=== PATIENT | male | born 1955 | race Caucasian/White ===

== ENCOUNTER 2018-04-25 20:53 | Observation (INO) ==
--- NOTE | 2018-04-25 21:08 | Emergency Department Note ---
ED Disposition Clinical Impression: Community acquired pneumonia Qualifiers: Laterality: unspecified laterality Qualified Code(s): J18.9 - Pneumonia, unspecified organism Disposition: Still a Patient Condition on Discharge: Fair Referrals: Wendy Wu [Primary Care Provider] - - Critical Care Critical Care Time: No Attestation: On 04/25/18, the high probability of a clinically significant, sudden or life threatening deterioration of the following system(s) required my full and direct attention, intervention and personal management. The time I documented below is in addition to time spent performing reported procedures but includes the following listed in this critical care notation. Medical Decision Making - [place] Inquiry Pt receiving controlled substance: No Vital Signs: 04/25/18 20:59 04/25/18 21:30 04/25/18 22:03 Temperature 98.3 F Temperature Source Oral Pulse Rate 93 H 89 Pulse Rate [Right] 86 Respiratory Rate 24 Blood Pressure [Right Arm] 159/96 H Blood Pressure Mean [Right Arm] 117 02 Sat by Pulse Oximetry 99 Oxygen Delivery Method Room Air 04/25/18 23:00 Temperature 101.1 F H Temperature Source Oral Pulse Rate Pulse Rate [Right] 112 H Respiratory Rate 28 H Blood Pressure [Right Arm] 150/90 H Blood Pressure Mean [Right Arm] 110 02 Sat by Pulse Oximetry 94 L Oxygen Delivery Method Room Air - Lab Data Lab Results 04/25/18 21:00: WBC 11.2 H, RBC 4.63, Hgb 13.6 L, Hct 41.2 L, MCV 88.9, MCH 29.5, MCHC 33.1, RDW 14.3, Plt Count 165, MPV 6.9 L, Neut % (Auto) 88.9 H, Lymph % (Auto) 6.9 L, [place] % (Auto) 3.6, Eos % (Auto) 0.3, Baso % (Auto) 0.3, Neut # (Auto) 10.0 H, Lymph # (Auto) 0.8, [place] # (Auto) 0.4, Eos # (Auto) 0.0, Baso # (Auto) 0.0, Total Counted 100, Neutrophils % (Manual) 83 H, Band Neutrophils % 11.0 H, Lymphocytes % (Manual) 5 L, Monocytes % (Manual) 1 L, Platelet Estimate Normal, RBC Morphology Normal 04/25/18 21:00: Sodium 140, Potassium 4.3, Chloride 104, Carbon Dioxide 24, Anion Gap 16.3 H, BUN 21 H, Creatinine 1.32 H, Estimated Creat Clear 61, Estimated GFR 55 L, Est GFR ( Amer) 67, Glucose 128 H, Calcium 8.9, Troponin I < 0.02 04/25/18 21:00: Lactate 2.4 H 04/25/18 21:00: Influenza Type A Ag Negative, Influenza Type B Ag Negative 04/25/18 22:55: Urine Color Yellow, Urine Appearance Clear, Urine pH 7.0, Ur Specific [place] 1.020, Urine Protein Negative, Urine Glucose (UA) Negative, Urine Ketones Negative, Urine Blood Negative, Urine Nitrate Negative, Urine Bilirubin Negative, Urine Urobilinogen 0.2, Ur Leukocyte Esterase Negative, Urine WBC 3-5 Result diagrams: 04/25/18 21:00 04/25/18 21:00 Orders (Tests/Meds): ED MEDICATIONS Generic Name Dose Route Start Last Admin Trade Name Freq PRN Reason Stop Dose Admin Azithromycin 500 mg/ Sodium 250 mls @ 250 mls/hr 04/25/18 23:15 Chloride IV 05/09/18 23:14 Q24H MIKE Protocol Ceftriaxone Sodium 1 gm/ 50 mls @ 100 mls/hr 04/25/18 23:15 Sodium Chloride IV 05/09/18 23:14 Q24H MIKE Protocol Discontinued Medications Generic Name Dose Route Start Last Admin Trade Name Freq PRN Reason Stop Dose Admin Acetaminophen 650 mg 04/25/18 23:07 Acetaminophen 325mg Tab PO 04/25/18 23:08 ONCE ONE Albuterol/Ipratropium 3 ml 04/25/18 21:17 04/25/18 21:30 Duoneb 3ml Neb IH 04/25/18 21:18 3 ml ONCE ONE Administration Methylprednisolone Sodium Succinate 125 mg 04/25/18 23:08 Solu-Medrol 125mg/2ml Vial IV 04/25/18 23:09 ONCE ONE ORDERS Category Date Time Status Chest XR 2 view (NOT portable) [XR chest 2V] Stat Exams 04/25/18 21:11 Taken UA [Urinalysis and Microscopic] Stat Lab 04/25/18 22:55 Ordered Blood Culture Stat Micro 04/25/18 21:00 Received ECG Request by /Karel Stat Y 04/25/18 21:10 Ordered - Radiology Data #1 Image(s): Chest Image Reviewed: Yes I reviewed the patient's radiology image Bilateral upper lobe airspace disease, no old x-rays available for comparison - ECG Data Tracing #1 EKG interpreted by Jaden Malloy MD: Rhythm: sinus Rate: 87 [place]: normal Ectopy: none Conduction: normal ST Segment Changes: none T Wave Changes: none Q Waves: none No evidence of acute ischemia or injury Prior electrocardiagrams reviewed. No change from prior tracings. - Physician Consults Physician Consulted: Jayson Time: 23:20 Reason -: Admission Comment/Response: Agrees to admit the patient to the hospital. We discussed the patient's clinical information, including history, exam, laboratory and rad iology results and ED course. Per hospital procedure, I will write temporary bridge inpatient orders on the patient. Specific orders requested by the admitting physician: Rocephin, Zithromax, nebulizer treatments, Solu-Medrol General Adult HPI - General Stated complaint: SOB Patient has Black Lung Disease Time Seen by Provider: 04/25/18 22:51 - History of Present Illness HPI narrative: Sick for 2 days. Shortness of breath and cough. Very little sputum. [place] hot today but does not take his temperature. Denies rhinorrhea, sore throat, vomiting, and diarrhea. Has a black lung. Sees a animal handler in [place]. Primary care doctor is in [place]. He is on nebulizer treatments at home. He is not on steroids chronically and is not on oxygen at home. states also has chronic back pain, on Percocet. - Related Data Home Medications Medication Instructions Recorded Confirmed Diclofenac Sodium [Diclofenac 75mg 75 mg PO BID 04/25/18 04/25/18 Tab] Dutasteride [Avodart] 0.5 mg PO DAILY 04/25/18 04/25/18 Fluticasone/Vilanterol [Breo 1 each IH TID 04/25/18 04/25/18 Ellipta 100-25 Mcg INH] Oxycodone HCl/Acetaminophen 1 each PO NEEDED PRN 04/25/18 04/25/18 [Percocet 10-325 mg Tablet] Roflumilast [Daliresp] 1,000 mcg PO DAILY 10/28/18 10/28/18 Ropinirole HCl 1 mg PO DAILY 04/25/18 04/25/18 Allergies Allergy/AdvReac Type Severity Reaction Status Date / Time No Known Allergies Allergy Verified 04/25/18 21:10 [facility] History I have reviewed the patient's past medical history: Yes ROS Obtained: Yes All systems reviewed & no additional complaints - Constitutional Constitutional: Reports fever(s) (Subjective) - Cardiovascular Cardiovascular: Denies chest pain - Respiratory Respiratory: Yes cough, Yes dyspnea - Gastrointestinal Gastrointestingal: Denies: abdominal pain, diarrhea, vomiting Physical Exam - General General appearance: alert, other (Tachypneic) - Head Head exam: atraumatic, normocephalic - Eye Eye exam: Present: normal appearance, PERRL, EOMI - ENT ENT exam: Present: normal exam, normal oropharynx, TM's normal bilaterally - Neck Neck exam: Present: normal inspection, full ROM, trachea midline - Chest Chest inspection: Present: symmetric chest wall rise - Respiratory Respiratory exam: Present: normal lung sounds bilaterally - Cardiovascular Cardiovascular exam: Present: regular rate, normal rhythm - Abdominal Exam Abdominal exam: Present: soft. Absent: distention, tenderness - Neurological Exam Neurological exam: Present: alert - Psychiatric Psychiatric exam: Present: normal affect, normal mood - Skin Skin exam: Present: warm, dry
[2018-04-25 21:49] LABS: Basophils % 0.3 % (0.1-2.0); Eosinophils % 0.3 % (0.1-12.0); Hematocrit 41.2 % (42.0-52.0); Hemoglobin 13.6 g/dL (14.1-18.0); Lymphocytes # 0.8 K/mm3 (0.7-4.5); Lymphocytes % 6.9 K/mm3 (10-50); Mean Corpuscular HGB Conc 33.1 g/dL (31.8-35.4); Mean Corpuscular Hemoglobin 29.5 pg (27.0-31.2); Mean Corpuscular Volume 88.9 fl (80-94); Mean Platelet Volume 6.9 fl (7.4-10.4); Monocytes # 0.4 K/mm3 (0.1-1.0); Monocytes % 3.6 % (1.7-9.3); Neutrophils % 88.9 % (37.0-80.0); Platelet Count 165 K/mm3 (142-424); Red Blood Count 4.63 M/mm3 (4.60-6.20); Red Cell Distribution Width 14.3 % (11.5-17.5); White Blood Count 11.2 K/mm3 (4.8-10.8)
[2018-04-25 22:01] LABS: Anion Gap 16.3 mEq/L (5-15); Blood Urea Nitrogen 21 mg/dL (7-18); Calcium 8.9 mg/dL (8.5-10.1); Carbon Dioxide 24 mmol/L (21.0-32.0); Chloride 104 mmol/L (98-107); Glucose 128 mg/dL (74-106); Potassium 4.3 mmoL/L (3.5-5.1); Sodium 140 mmol/L (136-145)
[2018-04-25 22:19] LABS: Lymphocytes % 5 % (10-50); Monocytes % 1 % (2-9); Neutrophils % 83 % (42-76); RBC Morphology Normal; Total Cells Counted 100
[2018-04-25 23:01] LABS: Microscopic, Urine URINE MICROSCOPIC (MICROSCOPIC)
[2018-04-25 23:09] LABS: Appearance,Urine CLEAR (Clear); Bilirubin,Urine Negative (Negative); Blood, Urine Negative (Negative); Color,Urine YELLOW (Yellow); Glucose,Urine (UA) Negative (Negative); Ketones,Urine Negative (Negative); Leukocyte Esterase,Urine Negative (Negative); Protein,Urine Negative (Negative); Urobilinogen,Urine 0.2 EU/dl (0.2)
--- NOTE | 2018-04-26 07:26 | Pharmacy Consult Notes ---
[facility] Pharmacy VTE Monitoring - Patient Demographics Admission date: 04/25/18 Report Date: 04/26/18 Time: 07:26 Allergies/Adverse Reactions: Patient Allergies No Known Allergies Allergy (Verified 04/25/18 21:10) Height: 1.7 m Weight: 73.198 kg Patient Problems: Current Active Problems Community acquired pneumonia (Acute) - VTE Risk Labs: VTE Related Lab Results Hgb 13.6 g/dL (14.1-18.0) L 04/25/18 21:00 Hct 41.2 % (42.0-52.0) L 04/25/18 21:00 Plt Count 165 K/mm3 (142-424) 04/25/18 21:00 BUN 21 mg/dL (7-18) H 04/25/18 21:00 Creatinine 1.32 mg/dL (0.70-1.30) H 04/25/18 21:00 Estimated Creat Clear 61 mL/min (0-300) 04/25/18 21:00 Was VTE Risk Assessment Performed: Yes VTE Score: 5 VTE Risk Level: Low Risk - Prophylaxis VTE Prophylaxis Ordered?: Yes Types of VTE Prophylaxis: TEDS Knee High Location of Applied Device: Bilateral Lower Extremeties - VTE Diagnosis Confirmed Treatment or plan recommended: Continue Current Treatment
--- NOTE | 2018-04-26 08:37 | History & Physical Report ---
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 Wu, family practitioner in [facility], who was brought to the emergency department on the evening of admission by his because of "breathing distress." He and she report increasing work of breathing, coughing, sputum production of yellow/shafer purulent appearing sputum. In the emergency department chest x-ray revealed opacities in both upper lung mcclelland-and although we do not have a baseline chest x-ray it appeared to be an acute issue coupled with his symptoms and temperature elevation in the emergency department. Because of his underlying lung disease and increased work of breathing distress he was admitted to hospital for IV antibiotics and enhanced pulmonary toilet. [facility] History Medical History: Denies:: Cancer, Diabetes Mellitus Type 1, Diabetes Mellitus Type 2, Internal Pacemaker, MRSA Other Medical History: Reports: Arthritis (On Chronic narcotics) Comment: Black Lung. Follows with pulmonary in [place] Laterality Cases: Right: Arthroscopy Shoulder, Total Hip Replacement Other Surgeries: No: Pacemaker Amputation: No Fractures: Yes (R Hip) - *Social History Educational Level: Completed College Smoking Status: Never smoker Alcohol Intake: never Occupational Status: retired Housing: house - Psychiatric History Expresses thoughts of harming self/others: None Suicide Plan Description: No Plan *Family Hx:: Cancer, Diabetes, Hypertension Review of Systems - Review of Systems Review of systems:: pertinent systems reviewed and negative unless documented below - Constitutional Reports fever(s), Reports night sweats, Denies anorexia, Denies body ache(s) - Eyes Denies blind spots, Denies blurry vision, Denies change in vision - ENT Denies abnormal hearing, Denies bleeding gums - *Cardiovascular Reports shortness of breath, Reports shortness of breath with activity, Denies chest pain, Denies chest pain at rest, Denies excessive sweating, Denies irregular heart rhythm - *Respiratory Reports change in phlegm color, Reports chest congestion, Reports cough, Reports shortness of breath, Reports shortness of breath with activity, Reports excessive phlegm production, Denies coughing up blood, Denies pain on inspiration, Denies pain with cough - *Gastrointestinal Denies abdominal pain, Denies belching, Denies bloating, Denies coffee ground vomit, Denies constipation, Denies difficulty swallowing - *Genitourinary Denies difficulty urinating Meds Home Medications Medication Instructions Recorded Confirmed Type Diclofenac Sodium [Diclofenac 75mg 75 mg PO HS 04/25/18 04/26/18 History Tab] Dutasteride [Avodart] 0.5 mg PO HS 04/25/18 04/26/18 History Fluticasone/Vilanterol [Breo 1 each IH DAILY 04/25/18 04/26/18 History Ellipta 100-25 Mcg INH] Oxycodone HCl/Acetaminophen 1 each PO TID PRN 04/25/18 04/26/18 History [Percocet 10-325 mg Tablet] Roflumilast [Daliresp] 1,000 mcg PO DAILY 04/25/18 04/25/18 History Ropinirole HCl 1 mg PO DAILY 04/25/18 04/25/18 History Allergies Allergy/AdvReac Type Severity Reaction Status Date / Time No Known Allergies Allergy Verified 04/25/18 21:10 Exam Vital signs and Labs for Last 24 Hours: Temp Pulse Resp BP Pulse Ox 97.6 F 77 20 106/61 L 97 04/26/18 07:52 04/26/18 07:52 04/26/18 07:52 04/26/18 07:52 04/26/18 07:52 Laboratory Results - last 24 hr 04/25/18 21:00: WBC 11.2 H, RBC 4.63, Hgb 13.6 L, Hct 41.2 L, MCV 88.9, MCH 2 9.5, MCHC 33.1, RDW 14.3, Plt Count 165, MPV 6.9 L, Neut % (Auto) 88.9 H, Lymph % (Auto) 6.9 L, [place] % (Auto) 3.6, Eos % (Auto) 0.3, Baso % (Auto) 0.3, Neut # (Auto) 10.0 H, Lymph # (Auto) 0.8, [place] # (Auto) 0.4, Eos # (Auto) 0.0, Baso # (Auto) 0.0, Total Counted 100, Neutrophils % (Manual) 83 H, Band Neutrophils % 11.0 H, Lymphocytes % (Manual) 5 L, Monocytes % (Manual) 1 L, Platelet Estimate Normal, RBC Morphology Normal 04/25/18 21:00: Sodium 140, Potassium 4.3, Chloride 104, Carbon Dioxide 24, Anion Gap 16.3 H, BUN 21 H, Creatinine 1.32 H, Estimated Creat Clear 61, Estimated GFR 55 L, Est GFR ( Amer) 67, Glucose 128 H, Calcium 8.9, Troponin I < 0.02 04/25/18 21:00: Lactate 2.4 H 04/25/18 21:00: Influenza Type A Ag Negative, Influenza Type B Ag Negative 04/25/18 22:55: Urine Color Yellow, Urine Appearance Clear, Urine pH 7.0, Ur Specific [place] 1.020, Urine Protein Negative, Urine Glucose (UA) Negative, Urine Ketones Negative, Urine Blood Negative, Urine Nitrate Negative, Urine Bilirubin Negative, Urine Urobilinogen 0.2, Ur Leukocyte Esterase Negative, Urine WBC 3-5 04/26/18 00:45: Lactate 1.0 I & O for Last 24 hours: Intake & Output 04/23/18 04/24/18 04/25/18 04/26/18 11:59 11:59 11:59 11:59 Intake Total 710 / 710 Balance 710 / 710 Weight 161 lb 6 oz Microbiology Reports for the Last 24 Hours: Microbiology 04/25/18 23:50 Sputum - Expectorated Sputum Gram Stain - Final Narrative: Patient is awake, alert. Oriented x3. Appears somewhat older than his stated age, oropharynx is moist and clear, no sinus tenderness. Lungs have rhonchi in all lung mcclelland, otherwise good air movement, some crackles in the left upper lung field. Heart rate regular without murmurs. Abdomen soft, nontender. Good distal perfusion, no edema. Able to move all extremities, good power, normal sensation. Assessment and Plan (1) [place] workers pneumoconiosis Current visit: Yes Status: Chronic Category: Medical Code(s): J60 - Coalworker's pneumoconiosis Agree with admission to hospital for enhanced pulmonary toilet, continue chronic respiratory medication. (2) Chronic, continuous use of opioids Current visit: Yes Status: Chronic Category: Medical Code(s): F11.90 - Opioid use, unspecified, uncomplicated Watch mental status in hospital carefully -- continue current outpatient regimen (3) Community acquired pneumonia Current visit: Yes Status: Acute Qualifiers: Laterality: unspecified laterality Qualified Code(s): J18.9 - Pneumonia, unspecified organism Category: Medical Code(s): J18.9 - Pneumonia, unspecified organism Agree with admission given underlying lung disease. Significant comorbid conditions. Await culture results.
[2018-04-27 06:08] LABS: Eosinophils % 0.1 % (0.1-12.0); Hematocrit 38.6 % (42.0-52.0); Hemoglobin 12.4 g/dL (14.1-18.0); Lymphocytes # 0.7 K/mm3 (0.7-4.5); Mean Corpuscular HGB Conc 32.1 g/dL (31.8-35.4); Mean Corpuscular Hemoglobin 28.9 pg (27.0-31.2); Mean Corpuscular Volume 90.1 fl (80-94); Mean Platelet Volume 7.3 fl (7.4-10.4); Monocytes # 0.5 K/mm3 (0.1-1.0); Monocytes % 2.7 % (1.7-9.3); Neutrophils # 17.4 K/mm3 (1.8-7.8); Neutrophils % 93.3 % (37.0-80.0); Platelet Count 165 K/mm3 (142-424); Red Blood Count 4.29 M/mm3 (4.60-6.20); Red Cell Distribution Width 14.4 % (11.5-17.5); White Blood Count 18.7 K/mm3 (4.8-10.8)
[2018-04-27 06:17] LABS: Anion Gap 15.5 mEq/L (5-15); Calcium 8.5 mg/dL (8.5-10.1); Potassium 4.5 mmoL/L (3.5-5.1)
[2018-04-27 07:47] LABS: Lymphocytes % 4 % (10-50); Monocytes % 3 % (2-9); Neutrophils % 88 % (42-76); RBC Morphology Normal; Total Cells Counted 100
--- NOTE | 2018-04-27 09:04 | Discharge Summary ---
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 Wu, family practitioner in [facility], who was brought to the emergency department on the evening of admission by his because of "breathing distress." He and she report increasing work of breathing, coughing, sputum production of yellow/shafer purulent appearing sputum. In the emergency department chest x-ray revealed opacities in both upper lung mcclelland-and although we do not have a baseline chest x-ray it appeared to be an acute issue coupled with his symptoms and temperature elevation in the emergency department. Because of his underlying lung disease and increased work of breathing distress he was admitted to hospital for IV antibiotics and enhanced pulmonary toilet. Hospital Course Hospital Course: Patient admitted to observation for increased pulmonary toilet and initiation of IV antibiotics. Blood cultures obtained and respiratory culture obtained. Have not formally resulted yet however blood cultures remain negative. Respiratory culture does have some gram-positive cocci, pending speciation sensitivities. Patient improved significantly with initiation of antibiotics and pulmonary toilet. [place] 80% his baseline this morning on rounds. No oxygen requirement, interval improvement in lung exam. Feels well enough to go home. Clinically stable, no fevers, improvement in cough. Plan to transition oral antibiotics and discharge home with follow-up of cultures pending any adjustments in antibiotics. Objective Vital signs: Temp Pulse Resp BP Pulse Ox 97.6 F 83 18 111/60 96 04/27/18 08:00 04/27/18 08:00 04/27/18 08:00 04/27/18 08:00 04/27/18 08:00 - *Routine HEENT Exam Head: Present: normocephalic, atraumatic Eye: Present: EOMI, PERRL ENT: Present: mucous membranes moist - *Routine Neck Exam Present: supple, full ROM. Absent: JVD - *Routine Respiratory Exam Present: prolonged expiratory phase, crackles. Absent: accessory muscle use, wheezes Comments: Good air movement bilaterally - *Routine Cardiovascular Exam Present: RRR, Normal S1, Normal S2. Absent: murmur - *Routine Abdominal Exam Present: soft, normoactive bowel sounds. Absent: tenderness - *Routine Rectal Exam Patient deferred: visual exam - *Routine Exam Patient deferred: penile exam - *Routine Extremities Exam Absent: cyanosis, clubbing, edema - *Routine Skin Exam Present: intact. Absent: cyanosis, erythema - *Routine Neurological Exam Present: alert, oriented X3, CN II-XII intact. Absent: altered mental status Results Labs on day of discharge: Labs from last 24 hours 04/27/18 04/27/18 05:35 05:35 WBC 18.7 H D RBC 4.29 L Hgb 12.4 L Hct 38.6 L MCV 90.1 MCH 28.9 MCHC 32.1 RDW 14.4 Plt Count 165 MPV 7.3 L Neut % (Auto) 93.3 H Lymph % (Auto) 4.0 L [place] % (Auto) 2.7 Eos % (Auto) 0.1 Baso % (Auto) 0.0 L Neut # (Auto) 17.4 H Lymph # (Auto) 0.7 [place] # (Auto) 0.5 Eos # (Auto) 0.0 Baso # (Auto) 0.0 Total Counted 100 Neutrophils % (Manual) 88 H Band Neutrophils % 5.0 Lymphocytes % (Manual) 4 L Monocytes % (Manual) 3 Platelet Estimate Normal RBC Morphology Normal Sodium 141 Potassium 4.5 Chloride 107 Carbon Dioxide 23 Anion Gap 15.5 H BUN 22 H Creatinine 1.14 Estimated Creat Clear 71 Estimated GFR 66 Est GFR ( Amer) 79 Glucose 151 H Calcium 8.5 Preliminary micro results at discharge 04/25/18 23:50 Sputum Culture - Preliminary Sputum - Expectorated Sputum DS: Diagnosis - Discharge Diagnosis (1) [place] workers pneumoconiosis Status: Chronic Problem details: continue breathing treatments at home. (2) Chronic, continuous use of opioids Status: Chronic Problem details: continue home regimen (3) Community acquired pneumonia Status: Acute Problem details: Transition to PO Cefdinir and Azith to complete 7 days of Abx for CAP treatment. Culture still pending. Due to clinical improvement on current regmien, stable of DC with follow-up of cultures as out patient Discharge Plan - Patient Discharge Instructions ACTIVITY: Continue current activity DIET: continue same diet - Follow up Plan Follow up with: Kenny Tyler MD [Staff Physician] - Disposition: Home, Self-[facility] Medications: Home Medications Medication Instructions Recorded Confirmed Type Diclofenac Sodium [Diclofenac 75mg 75 mg PO BID 04/25/18 04/26/18 History Tab] Dutasteride [Avodart] 0.5 mg PO HS 04/25/18 04/26/18 History Fluticasone/Vilanterol [Breo 1 puff IH DAILY 04/25/18 04/26/18 History Ellipta 100-25 Mcg INH] Roflumilast [Daliresp] 500 mcg PO DAILY 04/25/18 04/26/18 History Ropinirole HCl 2 mg PO HS 04/25/18 04/26/18 History Albuterol Sulfate [Albuterol 3 ml IH Q6HP PRN 04/26/18 04/26/18 History 0.042% 1.25mg/3mL neb] Albuterol Sulfate [Albuterol HFA 2 puffs IH Q4HP PRN 04/26/18 04/26/18 History Inhaler] Omeprazole [Omeprazole 20mg 20 mg PO DAILY 04/26/18 04/26/18 History Capsule] Oxycodone HCl [Oxycodone (IR) 15mg 15 mg PO TIDP PRN 04/26/18 04/26/18 History Tab] Umeclidinium [place] [Incruse 1 puff IH DAILY 04/26/18 04/26/18 History Ellipta] Prescriptions/Medication Reconciliation: New Cefdinir [Omnicef 300mg Capsule] 300 mg PO BID 7 Days #14 cap Oxycodone HCl/Acetaminophen [Oxycodone W/Apap 325mg Tablet] 1 each PO TIDP PRN tablet PRN Reason: Moderate To Severe Pain Azithromycin [Zithromax 250mg tab] 250 mg PO DAILY 4 Days #4 tablet predniSONE [Prednisone 20mg Tab] 40 mg PO DAILY 4 Days #8 tab Continue Diclofenac Sodium [Diclofenac 75mg Tab] 75 mg PO BID Ropinirole HCl 2 mg PO HS Roflumilast [Daliresp] 500 mcg PO DAILY Fluticasone/Vilanterol [Breo Ellipta 100-25 Mcg INH] 1 puff IH DAILY Umeclidinium [place] [Incruse Ellipta] 1 puff IH DAILY Albuterol Sulfate [Albuterol 0.042% 1.25mg/3mL neb] 3 ml IH Q6HP PRN PRN Reason: Shortness Of Breath Oxycodone HCl [Oxycodone (IR) 15mg Tab] 15 mg PO TIDP PRN PRN Reason: PAIN Dutasteride [Avodart] 0.5 mg PO HS Albuterol Sulfate [Albuterol HFA Inhaler] 2 puffs IH Q4HP PRN PRN Reason: Shortness Of Breath Or Wheezing Omeprazole [Omeprazole 20mg Capsule] 20 mg PO DAILY
== END 2018-04-27 12:35 | disposition home or self-care (01) ==
LOC: EDBD → ER 20:53 → 2ND 20:53 → MERGE 04-26 00:20 → 2ND 04-26 00:21
PROVIDERS: ADMIT Internal Medicine Adolescent Medicine; ATTEND Internal Medicine Adolescent Medicine

== ENCOUNTER 2022-12-02 20:26 | Emergency (ER) | payer MEDICARE, OTHER, SELFPAY ==
[2022-12-02 20:34] VITALS: BP 133/59; PULSE 74; RESP 15; TEMP 36.6; O2SAT 95; BMI 25.0
--- NOTE | 2022-12-02 20:39 | PC.NURSE ---
Dr. Sebastian at
[2022-12-02 21:00] VITALS: BP 121/57; PULSE 69; O2SAT 96
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
[2022-12-02 21:27] VITALS: BP 115/79; PULSE 64; RESP 16; TEMP 36.6; O2SAT 96
== END 2022-12-02 21:28 | disposition home or self-care (01) ==
PROVIDERS: Emergency Provider Emergency Medicine; PCP Family Medicine
DX: T22.211A Burn of second degree of right forearm, initial encounter (principal); X03.8XXA Other exposure to controlled fire, not in building or structure, initial encounter; Z23 Encounter for immunization
CPT/HCPCS: 90714; 96372; 99283; 99284

== ENCOUNTER 2025-01-30 08:04 | Outpatient (CLI) | payer MEDICARE, OTHER, SELFPAY ==
--- OUTSIDE RECORDS SUMMARY | 2025-01-30 08:14 | XMS_ITS | Clinical Summary ---
Author Organization [facility] Address [address] [place] [address] Care Team Providers Care Sanitarian Name Role Phone Tyshawn uW MD Primary Care Provider [phone] Allergies Active Allergy Reactions Criticality Noted Date Comments No Known Drug Allergy 12/23/2012 Medications aspirin 81 MG tablet Take by mouth Daily. 12/23/2012 Active dutasteride (AVODART) 0.5 MG capsule Take by mouth Daily. 12/23/2012 Active omeprazole (priLOSEC) 40 MG capsule Take by mouth Daily. 06/14/2013 Active oxyCODONE-acetam inophen (PERCOCET) 10-325 MG per tablet Take by mouth. 03/30/2013 Active vitamin B-12 (CYANOCOBALAMIN) 100 MCG tablet Take by mouth Daily. 12/23/2012 Active Cholecalciferol (VITAMIN D PO) Take 50,000 mg by mouth. 12/23/2012 Active diclofenac (VOLTAREN) 75 MG EC tablet 08/13/2016 Active rOPINIRole (REQUIP) 1 MG tablet 09/21/2016 Active anastrozole (ARIMIDEX) 1 MG tablet Take by mouth Daily. Active Polyethylene Glycol 3350 granules 11/14/2016 Active Polyethylene Glycol 3350 granules 02/26/2017 Active Active Problems Problem Noted Date Diagnosed Date Primary osteoarthritis of left knee 06/02/2017 Immunizations Immunization Administration Dates Next Due Pneumococcal, Unspecified 02/04/2014 Family History Medical History Relation Name Comments Heart attack Father Heart disease Father Hypertension Father Hypertension Mother Diabetes Other 1 sibling Hypertension Other 1 sibling Heart attack Other 2 Grandparent Heart disease Other 2 Grandparent Stroke Other 2 Grandparent Relation Name Status Comments Father Mother Other 1 sibling Other 2 Grandparent Social History Tobacco Use Types Packs/Day Years Used Date Smoking Tobacco: Never Smokeless Tobacco: Former Chew, Snuff Quit: 2011 Alcohol Use Standard Drinks/Week Comments No 0 (1 standard drink = 0.6 oz pur e alcohol) Abuse Screen Answer Date Recorded Unsafe at Home or Work/School Not on file Feels Threatened by Someone? Not on file 02/2023 Does Anyone Keep You from Co ntacting Others or Doint Things Outside the Home? Not on file 04/06/2023 Physical Sign of Abuse Present Not on file 1 Housing Stability Answer Date Recorded Current Living Arrangements Not on file 02/2023 Potentially Unsafe Housing Conditions Not on marisol e 04/06/2023 Family and Community Support Answer Florencio e Recorded Help with Day-to-Day Activities Not on file 04/06/2023 Lonely or Isolated Not on file 04/06/2023 Employment Answer Date Recorded Do you want help finding or keeping work or a yeimi b? Not on file 04/06/2023 Disabilities Answer Date Recorded Concentrating, Remembering, or Making Decisions Difficulty Not on file 04/06/2023 Doing Errands Independently Difficulty Not on fi le 04/06/2023 Education Answer Date Recorded Help with school or training? Not on file Preferred Language Not on file 04/06/2023 Sex and Gender Information Value Date Recorded Sex Assigned at Not on file Legal Sex Male 1:13 PM EDT Gender Identity Not on file Sexual Orientation Not on file Last Filed Vital Signs Vital Sign Reading Time Taken Comments Blood Pressure 128/65 05/19/2017 9:40 AM EST Pulse 65 05/19/2017 9:40 AM EST Temperature 36.8 C (98.2 F) 12/23/2013 12:59 PM EDT Respiratory Rate 18 12/23/2013 12:59 PM EDT Oxygen Saturation 97% 12/23/2013 12:59 PM EDT Inhaled Oxygen Concentration - - Weight 72.6 kg (160 lb) 05/19/2017 9:40 AM EST Height 167.6 cm (5' 6 ) 05/19/2017 9:40 AM EST Body Mass Index 25.82 05/19/2017 9:40 AM EST Plan of Treatment Health Maintenance Due Date Last Done Comments Pneumococcal Vaccine 50+ (1 of 2 - PCV) 1976 0 02/04/2014 TDAP/TD VACCINES (1 - Tdap) 1976 COLOGUARD 2002 COLON CANCER SCREENING 5 YEAR SIGMOIDOSCOPY 2002 COLONOSCOPY 2002 [address] CANCER SCREENING 2002 CT COLONOGRAPHY 2002 FECAL OCCULT BLOOD TEST 2002 FIT Testing (1 year) 2002 ZOSTER VACCINE (1 of 2) 09/06/2007 ANNUAL PHYSICAL 11/04/2016 HEPATITIS C SCREENING 11/04/2016 AAA SCREEN ONCE 2022 COVID-19 Vaccine (2023- season) 2024 INFLUENZA VACCINE 03/29/2025 Insurance [employer] HMO - NON PAR on file Care Teams Sanitarian Relationship Specialty Start Date End Date Tyshawn Wu MD [address] [facility] [address] [place] [address] PCP - General Family Medicine 11/04/16
--- OUTSIDE RECORDS SUMMARY | 2025-01-30 08:14 | XMS_ITS | Encounter Summary ---
Author Organization [employer] ([place], [place], [place], [place]) Address [address] [place] [address] Care Team Providers Care Compensation And Benefits Advisor Name Role Phone Unavailable Primary Care Provider Unavailabl e Reason for Referral * Consultation (Routine) - Closed Specialty Diagnoses / Procedures Referred By Contaltagracia t Referred To Contact Behavioral Health / Psychiatry Diagnoses Memory loss Romeo Herrera MD [address] [place] [phone] Phone: tel: fax: Referral ID Status Reason Start Date Expiration Date V isits Requested Visits Authorized [id number] Closed Specialty Services Required 01/07/2023 07/06/2023 1 1 Encounter Details Date Type Department Care Team (Late st Contact Info) Description 01/07/2023 Outside Orders [facility] Scheduling [address] [place] [address] Romeo Herrera MD [address] [place], [place] [id number] Memory loss (Primary Dx) Social History Tobacco Use Types Packs/Day Years Used Date Smoking Tobacco: Never Assessed Food Insecurity Answer Date Recorded Food run out past 12 months Not on file 06/29 Food did not last past 12 months Not on file 07/10/2023 Employment Answer Date Recorded Help finding and keeping a job Not on file 0 07/10/2023 Family and Community Support Answer Florencio e Recorded Help with Day to Day Activities Not on file 07/10/2023 Feeling Lonely or Isolated Not on file 07/10 Educational Attainment Answer Date Wellington rded Speak language other than Gibraltarian at home Not on file 07/10/2023 Want help with school or training Not on file 07/10/2023 Substance Use Answer Date Recorded Used prescription meds for non-medical reasons N ot on file 07/10/2023 Used illegal drugs past 12 months Not on file 07/10/2023 Sex and Gender Information Value Date Recorded Sex Assigned at Not on file Legal Sex Male 4:29 PM CDT Gender Identity Not on file Sexual Orientation Not on file documented as of this encounter Plan of Treatment Scheduled Referrals Name Type Priority Associated Diagnoses Order Schedule Ambulatory referral to Behavioral Health Outpatient Referral Routine Memory loss Expected: 01/07/2023, Expires: 01/08/2024 documented as of this encounter Visit Diagnoses Diagnosis Memory loss- Primary documented in this encounter
--- OUTSIDE RECORDS SUMMARY | 2025-01-30 08:15 | XMS_ITS | Referral Summary ---
Author Organization [employer] ([place], [place], [place], [place]) Address [address] [place] [address] Care Team Providers Care Respiratory Care Instructor Name Role Phone Unavailable Primary Care Provider Unavailabl e Social History Tobacco Use Types Packs/Day Years [...] Date [place] rded Speak language other than Amharic at home Not on file 07/10/2023 Want [...] on file Sexual Orientation Not on file Plan of Treatment Not on file Insurance ENRIQUE Millan [id number] [facility] MEDICARE PPO MEDICARE PART A B
--- OUTSIDE RECORDS SUMMARY | 2025-01-30 08:15 | XMS_ITS | Clinical Summary ---
Author Organization [employer] ([place], [place], [place], [place]) Address [address] [place] [address] Care Team Providers Care Compressed Yeast Supervisor Name Role Phone Unavailable Primary Care Provider [...] Date Wellington rded Speak language other than Albanian at home Not on file 07/10/2023 Want [...] Orientation Not on file Plan of Treatment Health Maintenance Due Date Last Done Comments CT Colonography 1957 Colonoscopy 1957 Colorectal Cancer Screening 1957 FOBT/FIT 1957 Fit-DNA (Cologuard) 1957 Sigmoidoscopy 1957 Depression Screening (12+) 1969 Tobacco Cessation Counseling and Screening (12+) 09/05 Hepatitis C Screening 09/06/1975 Pneumococcal 50+ years (1 of 1 - PCV) 09/06/2007 Shingles Vaccine (Zoster) (1 of 2) 09/06/2007 Medicare Initial AWV [id number] 06/30/2023 COVID-19 VACCINE (2 - season) 02/28/202403/2021 Falls Risk Screening 06/29/2024 Influenza Vaccine (#1) 2025 04/15/2022 Respiratory Syncytial Virus (RSV) Adult or (1 - 1-dose 75+ series) 2032 DTAP/TDAP/TD VACCINES (2 - Td or Tdap) 12/02/2032 Insurance [facility] MEDICARE PPO MEDICARE PART A B
[2025-01-30 08:41] LABS: Hematocrit 46.1 % (42.0-52.0); Hemoglobin 14.9 g/dL (14.1-18.0); Mean Corpuscular HGB Conc 32.3 g/dL (31.8-35.4); Mean Corpuscular Hemoglobin 29.5 pg (27.0-31.2); Mean Corpuscular Volume 91.3 fl (80-94); Platelet Count 147 K/mm3 (142-424); Red Blood Count 5.05 M/mm3 (4.60-6.20); White Blood Count 6.6 K/mm3 (4.8-10.8)
[2025-01-30 08:56] LABS: Albumin Level 3.6 g/dl (3.5-5.0); Chloride 106 mmol/L (98-107)
[2025-01-30 08:57] LABS: Potassium 4.3 mmoL/L (3.5-5.1); Sodium 137 mmol/L (136-145)
[2025-01-30 08:59] LABS: Alanine Aminotransferase 14 U/L (12-78); Anion Gap 9.3 mEq/L (5-15); Aspartate Amino Transferase 30 U/L (17-59); Blood Urea Nitrogen 27 mg/dl (9-20); Carbon Dioxide 26 mmol/L (22.0-30.0); Creatinine,Serum 1.10 mg/dl (0.66-1.25); Estimated Glomerular Filt Rate 67 ml/min (>60); GFR (African American) 81 ML/MIN (>60)
[2025-01-30 09:00] LABS: Albumin/Globulin Ratio 1.2 (1.1-1.8); Alkaline Phosphatase 60 U/L (38-126); Bilirubin,Total 0.6 mg/dl (0.2-1.3); Calcium 9.4 mg/dl (8.4-10.2); Globulin 3.0 g/dL (1.3-3.2); Glucose 97 mg/dl (74-100); Total Protein,Serum 6.6 g/dl (6.3-8.2)
[2025-01-30 09:33] LABS: Glucose,Fasting 97 mg/dl (74-100)
[2025-01-30 09:49] LABS: RBC Morphology Normal; Total Cells Counted 100
[2025-01-30 11:29] LABS: Thyroid Stimulating Hormone 2.01 uIU/mL (0.465-4.68)
[2025-01-30 11:44] LABS: Glucose 2 Hour 129 mg/dL (74-100)
[2025-01-30 11:48] LABS: Vitamin B12 393 pg/mL (239-931)
[2025-01-30 12:05] LABS: Glucose 1 Hour 141 mg/dL (74-100); Glucose 3 Hour 87 mg/dL (74-100)
[2025-01-30 12:48] LABS: Hemoglobin A1C 4.7 % (4.0-6.0)
== END 2025-01-30 23:59 | disposition home or self-care (01) ==
LOC: LAB 08:05
PROVIDERS: PCP Family Medicine; Visit Provider Specialist
DX: G93.40 Encephalopathy, unspecified (principal); G31.84 Mild cognitive impairment of uncertain or unknown etiology; G47.33 Obstructive sleep apnea (adult) (pediatric); R53.83 Other fatigue
CPT/HCPCS: 36415; 80053; 82607; 82951; 83036; 84443; 85007; 85014; 85018; 85048; 85049

== ENCOUNTER 2025-04-28 18:32 | Emergency (ER) | payer MEDICARE, OTHER, SELFPAY ==
[2025-04-28 18:35] VITALS: BP 122/62; PULSE 71; RESP 18; TEMP 37.4; O2SAT 96; BMI 25.0
--- NOTE | 2025-04-28 18:47 | XR_ITS ---
PROCEDURE INFORMATION: Exam: XR Right Hip Exam date and time: 04/28/2025 7:14 PM Age: 69 years old Clinical indication: Hip pain; Right hip; Additional info: Pain, fall TECHNIQUE: Imaging protocol: Radiologic exam of the right hip. Views: 2 or 3 views hip with pelvis when performed. COMPARISON: No relevant prior studies available. FINDINGS: Bones/joints: Bipolar right hip arthroplasty. No prosthetic dislocation. There is an age indeterminate nondisplaced intertrochanteric fracture of the right proximal femur with absent cortical bridging laterally. Can not exclude acute fracture elements, consider CT characterization as clinically indicated. Linear longitudinal lucency projecting at the tip of the femoral stem is felt to represent a vascular groove based on the lateral view. Moderate lower lumbar osteoarthritic changes. Soft tissues: No gross soft tissue abnormalities. Vasculature: Moderate calcific atherosclerosis. Other findings: Vasectomy clips noted. IMPRESSION: Age indeterminate nondisplaced intertrochanteric fracture of the right proximal femur. In the absence of prior comparison imaging, CT could be helpful to exclude elements of acute fracture. There is no hardware displacement or breakage.
--- NOTE | 2025-04-28 18:49 | ED_ITS ---
<Statement entered by Saundra Byrd DO - 04/28/25 21:55> I was consulted by the DECLAN, and we discussed the complexity of problems being addressed. I approve the treatment and management plan for this patient's care in the emergency department, thus performing a substantial portion of the medical decision making. Saundra Byrd DO Discharge Plan Disposition Chief Complaint: PAIN Prescriptions Prescriptions: No Action oxycodone-acetaminophen 10-325 mg tablet 1 tab PO TID PRN albuterol sulfate 2.5 mg /3 mL (0.083 %) solution for nebulization 2.5 mg continuous nebulization Breztri Aerosphere 160-9-4.8 mcg/actuation HFA aerosol inhaler inhalation Patient Comments: inhale 2 puffs BY MOUTH 2 TIMES A DAY ropinirole 1 mg tablet 1 mg PO HS Rx Instructions: administer 1-3 hours before bedtime tamsulosin 0.4 mg capsule 0.4 mg PO HS aspirin 81 mg tablet 81 mg PO DAILY testosterone cypionate 200 MG/ML oil 200 mg IM QOW albuterol sulfate 8.5 GM HFA aerosol inhaler 2 puffs inhalation Q4HP PRN (Reason: SOA) Referrals Follow up/Referrals: Tyshawn Wu MD [Primary Care Provider, Medical] - See instructions Print Language Print Language: Kyrgyz Discharge ED Provider: Saundra Byrd General Adult HPI General Chief complaint: PAIN Stated complaint: AO 04/28 1630, fell, inj right hip Time Seen by Provider: 04/28/25 18:49 Mode of Arrival: Ambulatory Source of Information: Patient and Spouse Description of Symptoms (Recalled from ER Triage Doc. by RN): abhilash presents after a fall at home. patient was tring to put his shoes on approximately an hour ago and he slipped, fell on his right hip and believes it may be broken. History of Present Illness HPI narrative: 69-year-old male presents for complaint of a fall onto his right hip. He was trying to put his shoes on about an hour ago and slipped and fell onto his right hip he thinks he has a broken hip. He was able to stand up on it and scoot his feet. His brought him in along with his grandson. Patient has history of lung surgery, bilateral hip replacements and a rotator cuff surgery. Patient also has history of memory loss, low back pain, kidney stones, reflux, COPD and sleep apnea. Patient has hypertension, restless legs, gout and hyperlipidemia. Patient did tell me that he is on O2 all the time. He wears 3 L nasal cannula at home. Related Data Home Medications ?Medication ?Instructions ?Recorded ?Confirmed albuterol sulfate 90 mcg/actuation 2 puffs inhalation Q4HP PRN SOA 08/17/19 01/25/25 aerosol inhaler testosterone cypionate 200 mg/mL 200 mg IM QOW testost erone 08/17/19 01/25/25 intramuscular oil supplement albuterol sulfate 2.5 mg/3 mL 2.5 mg continuous nebuli zation 09/22/24 01/25/25 (0.083 %) solution for nebulization oxycodone-acetaminophen 10 mg-325 1 tab PO TID PRN 01/25/25 mg tablet aspirin 81 mg tablet 81 mg PO DAILY 11/28/2412/29 ropinirole 1 mg tablet 1 mg PO HS 11/28/24 01/25/25 tamsulosin 0.4 mg capsule 0.4 mg PO HS 11/28/24 budesonide 160 mcg-glycopyr 9 inhalation 01/25/2512/29 mcg-formot 4.8 mcg/actuation HFA inhaler (Breztri Aerosphere) Allergies Allergy/AdvReac Type Severity Reaction Status Date / Time No Known Allergies Allergy Verified 01/25/25 11:27 [facility] Disclaimer: The information contained in this section may have been updated after the patient was seen, as this information can be updated by other users. Medical History History of depression History of memory loss History of low back pain History of kidney stones History of gastroesophageal reflux (GERD) History of COPD FRANKLIN (obstructive sleep apnea) Previously on CPAP with AHI 10 and currently on auto BiPAP but without significant improvement. Compliance report pending History of essential hypertension History of restless legs syndrome He has mainly PLMS and doing fairly well on Requip. History of gout History of hyperlipidemia Acute exacerbation of chronic obstructive airways disease Black lung disease Active follow-up with pulmonology in [place]. O2 at night and reluctant to consider O2 during daytime. Surgical History History of lung surgery History of bilateral hip replacements History of rotator cuff surgery Family History Other Cancer Coronary artery disease Depression Diabetes Heart attack Hypertension FRANKLIN (obstructive sleep apnea) Seizure Stroke Social History Smoking Status: Never smoker alcohol intake: never substance use type: denies use current occupational status: retired and disabled Travel in the last 8 weeks?: None household members: spouse housing: house marital status: number of children: 3 caffeine: Yes Have you lived/traveled outside US in past 30 days?: No Contact w/someone who lives/traveled outside US past 30 days?: No Exposure to someone with infectious disease in past 14 days?: No Do you have a fever (greater than 100.4 F or 38 C)?: No Have you tested positive for COVID-19?: No Exposed to someone with COVID-19 in past 14 days?: No Do you have a sore throat?: No Do you have a cough?: No Do you have any weakness?: No Do you have any diarrhea?: No Are you experiencing any unusual bleeding?: No Do you have any muscle aches/pain?: No Do you have any abdominal pain?: No Are you experiencing loss of taste or smell?: No Other Medical History Have you received the Flu Vaccine for this season: No Have you received the Pneumonia Vaccine: Yes ROS Obtained: Yes Systems reviewed as appropriate & no additional complaints except as documented Constitutional Constitutional: Reports as per HPI Physical Exam General General appearance: alert and in no apparent distress Head Head exam: normocephalic Eye Eye exam: Present PERRL and EOMI ENT ENT exam: Present normal oropharynx and mucous membranes moist Neck Neck exam: Present full ROM and trachea midline Respiratory Respiratory exam: Present normal lung sounds bilaterally Cardiovascular Cardiovascular exam: Present regular rate, normal rhythm, normal heart sounds, +S1 and +S2 Extremities Exam Extremities exam: Present tenderness and normal capillary refill Neurological Exam Neurological exam: Present alert and oriented X3 Skin Skin exam: Present warm and dry Medical Decision Making Medical Records Screening: Per USPSTF and CDC recommendations, given the prevalence of disease in our region, it is our hospital?s policy to screen for HIV and viral Hepatitis for all patients aged 18 and over and those with ongoing risk factors. Tre[place] Inquiry Pt receiving controlled substance: No Tre[place] was queried for this patient: No Vital Signs: 04/28/25 18:35 04/28/25 19:09 04/28/25 20:00 Temperature 99.3 F 98.2 F Temperature Source Temporal Artery Scan Oral Pulse Rate 71 69 Pulse Rate [Right Radial] 71 Respiratory Rate 18 16 Blood Pressure 119/66 120/72 Blood Pressure [Right Arm] 122/62 Blood Pressure Mean [Right Arm] 82 Blood Pressure Source [Right Arm] Automatic Cuff Blood Pressure Position [Right Arm] Sitting 02 Sat by Pulse Oximetry 96 94 L 100 Oxygen Delivery Method Room Air Room Air Lab Data Lab Results 04/28/25 18:55: WBC 7.3, RBC 4.77, Hgb 14.3, Hct 43.3, MCV 90.8, MCH 30.0, MCHC 33.0, RDW 16.0, Plt Count 170, MPV 9.0, Neut % (Auto) 78.4, Lymph % (Auto) 12.3, Knox % (Auto) 7.3, Eos % (Auto) 0.7, Baso % (Auto) 0.5, Neut # (Auto) 5.7, Lymph # (Auto) 0.9, Knox # (Auto) 0.5, Eos # (Auto) 0.1, Baso # (Auto) 0.0, Sodium 133 L, Potassium 4.2, Chloride 100, Carbon Dioxide 28, Anion Gap 9.2, BUN 25 H, C reatinine 1.30 H, Estimated Creat Clear 55, Estimated GFR 55 L, Est GFR ( Amer) 67, Glucose 102 H, Calcium 8.7, Magnesium 2.2, Total Bilirubin 0.9, AST 30, ALT 19, Alkaline Phosphatase 61, Total Protein 6.8, Albumin 4.8, Globulin 2.0, Albumin/Globulin Ratio 2.4 H, Lipase 284 04/28/25 18:55 04/28/25 18:55 Orders (Tests/Meds): ED MEDICATIONS Discontinued Medications Generic Name Dose Route Start Last Admin Trade Name Freq PRN Reason Stop Dose Admin Morphine Sulfate 4 mg 04/28/25 18:48 04/28/25 18:58 Morphine 4mg/Ml Syringe IV 04/28/25 18:49 4 mg ONCE ONE Administration Ondansetron HCl 4 mg 04/28/25 18:48 04/28/25 18:58 Ondansetron 4mg/2ml Vial IV 04/28/25 18:49 4 mg ONCE ONE Administration Orphenadrine Citrate 30 mg 04/28/25 18:48 04/28/25 18:58 Orphenadrine Citrate 60mg/2ml Vial IV 04/28/25 18:49 30 mg ONCE ONE Administration ORDERS Category Date Time Status CT bony pelvis Stat Cat Scan 04/28/25 19:59 Completed Hip XR right minimum 2 views [XR hip RT 2-3V w/pelvis] Exams 04/28/25 18:47 Completed Stat CBC [Complete Blood Count Auto Diff] Stat Lab 04/28/25 18:55 Completed Comprehensive Metabolic Panel Stat Lab 04/28/25 18:55 Completed Lipase Stat Lab 04/28/25 18:55 Completed Magnesium Stat Lab 04/28/25 18:55 Completed Medical Decision Narrative: patient is a 69-year-old male presenting to the emergency department for evaluation of right hip pain after a fall. Patient is hemodynamically stable and nontoxic-appearing upon arrival, afebrile. Differential diagnosis includes right hip fracture versus sprain or strain. Workup will be conducted with hematologic labs, specific imaging, provocative tests. Initial inventions include crystalloid bolus, analgesics. Initial workup reviewed by ks hematologic labs are remarkable for white blood cell count 7.3, H&H were normal, sodium was slightly low at 133, potassium 4.2, BUN was 25 and creatinine was 1.3. These were baseline for patient. Imaging done for patient include a right hip x-ray that showed age-indeterminate nondisplaced intertrochanteric fracture of the right proximal femur. We also did a CT scan of the pelvis which showed an acute appearing mildly displaced intertrochanteric fracture of the right proximal femur. Discussed with ED who accepted patient to [facility]. They want to Power Share the images as well as a CT on a disk. Abby Segal MD accepted patient in transfer. Patient aware. Patient is stable for transfer to ED. Critical Care Critical Care Time Critical Care Time: No
--- OUTSIDE RECORDS SUMMARY | 2025-04-28 18:55 | XMS_ITS | Continuity of Care Document ---
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 Plan of Treatment Reminders Order Date Submit Date Provider Last Modified By Organization Details Last Modified Time Details Appointments Establish ed Visit 15 min 2024 01:15P M Berry Sheets MD Not available Not available Not available Lab None recorded. Referral None recorded. Procedures None recorded. Surgeries None recorded. Imaging XR, hip, unilatera l, 2 or 3 view 2024 025 [facility] - [facility], [address], [place], [address], 03/11/2025 15:12:48 Medication Orders None recorded. Patient TargetsNo targets recorded. Patient InstructionsNo instructions recorded. Reason for Referral None Reported. Results Created Date Observation Date Name Description Value Unit Range Abnormal Flag Note LastModifiedBy Organization Detail LastModifiedTime 03/11/20 25 03/11/2025 XR, hip, unila teral , 2 or 3 view No observ ation record ed. [email or web address] In-House Imaging - [facility] [address], [place], [address], 03/12/2025 14:45:22 Result Notes None recorded. 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 Active [place] 2 09:59:27 Erectile dysfunction 224521152 Active Zita [place] 2 09:59:27 Patient encounter status 659631320 Active [place] 2 09:59:27 Nocturia 656839065 Active [place] 2 09:59:27 Viet hematuria 448290390 Active [place] 2 09:59:27 Kidney stone 12100434 Active [place] 2 09:59:27 Screening status 626189593 Active [place] 2 09:59:27 Cramp in lower limb 854406690 Active [place] 2 09:59:27 Nicotine dependence 04645354 Active [place] 2 09:59:27 Esophageal varices without bleeding 56110267 Active Z[place] 2 09:59:28 Undifferent iated inflammator y polyarthrit is 418730174 Active Z[place] 2 09:59:28 Hypertensiv e disorder 72257501 Active Z[place] 2 09:59:28 Essential hypertensio n 72361201 Active Z[place] 2 09:59:28 Male hypogonadis m 69366890 Active Z[place] 2 09:59:28 Lung mass 794119615 Active Zita [place] 2 09:59:28 History of polyp of colon 211928071 Active Z[place] 2 09:59:28 Gout 51772033 Active [place] 2 09:59:28 Abnormality of hepatic vein 436495288 Active Zita [place] 2 09:59:28 Chronic obstructive pulmonary disease 96319082 Active Zita [place] 2 09:59:28 Memory impairment 512133367 Active Z[place] 2 09:59:28 Arthritis of knee 145139209 Active Z[place] 2 09:59:28 Sinusitis 04466841 Active Z[place] 2 09:59:28 [place] workers' pneumoconio sis 78099673 Active Zita [place] 2 09:59:28 Candidiasis of mouth 71277139 Active [place] 2 09:59:28 Gastroesoph ageal reflux disease 050796348 Active [place] 2 09:59:28 Fatigue 35932132 Active Z[place] 2 09:59:28 Daytime somnolence 410441874761 Active Z[place] 2 09:59:28 Dyspnea on exertion 75762434 Active [place] 2 09:59:28 Hyperlipide tierra 42007724 Active Z[place] 2 09:59:28 Acute exacerbatio n of chronic obstructive pulmonary disease 598946333 [place] 2 09:59:28 Large prostate 916874726 Active [place] [facility] & [place] 2 09:59:28 Obstructive sleep apnea syndrome 94947428 Active [place] 2 09:59:28 Computed tomography result abnormal 116178568 Active [place] 2 09:59:28 Disease of liver 408173123 Active [place] 2 09:59:28 Hypersomnia 50301635 Active Z[place] 2 09:59:28 Measurement finding 163135226 Active [place] 2 09:59:28 Depression - motion Active Z[place] 2 09:59:28 Constipatio n 47793006 Active [place] 2 09:59:28 Counseling Active Zita [place] & [place] 2 09:59:28 Needs influenza immunizatio n 987390120 Active 2009 iZta Villagomez null[place] [facility] & [place] 2 09:59:27 Low back pain 723692951 Active 2009 Zita Velazcoch [place] [facility] [facility] & [place] 2 09:59:27 Dysuria 04656657 Active 2009 Zita [place]azcoch [place] [facility] [facility] & [place] 2 09:59:27 Allergic rhinitis 16568520 Active 2010 Zita [place]azcoch [place] [facility] [facility] & [place] 2 09:59:28 Fever 632289939 Active 2010 Zita [place]azcoch [place] [facility] & [place] 2 09:59:28 Cough 50302409 Active 2010 Zita [place]azcoch [place] [facility] & [place] 2 09:59:28 Precordial pain 52796455 Active 2010 Zita [place]azcoch [place] [facility] [facility] & [place] 2 09:59:27 Transient insomnia 435463284 Active 2010 Zita [place]azcoch [place] [facility] [facility] & [place] 2 09:59:27 Pleurisy without effusion or active tuberculosi s 319821721 Active 2010 Zita Velazcoch [place] [facility] [place] [facility] & [place] 2 09:59:27 Anemia due to chronic blood loss 777154591 Active 2010 Zita Velazcoch [place] [facility] [facility] & [place] 2 09:59:28 Lumbar spondylosis 684661142 Active 2022 Danyelle [place] [facility] [facility] & [place] 3 15:49:53 Degeneratio n of lumbar interverteb ral disc 24507224 Active 2022 Danyelle [place] [facility] & [place] 3 15:49:57 Arthritis of facet joint of lumbar spine 9739811773500 9101 Active 2022 Danyelle teresa[place] [facility] [place] & [place] 3 15:49:58 Pain in left sacroiliac joint 4993133809368 9102 Active 2023 Danyelle [place] [facility] & [place] 4 11:43:59 Myofascial pain 107706767 Active 2023 Danyelle [place] [facility] & [place] 4 07:00:26 Notes:Some problems listed i n Documents: #[id number], #[id number] could not be added to this patient's chart. Please review these documents and add these problems to the patient's chart manually as needed. Problem Notes None recorded. Procedures Surgical History Date Name Laterality Status Provider Name and Address Organization Details Recorded Time 09/08 6 Minute Walk Test completed Annel Lopezrick [place] & [place] 5 15:15:28 05/24 6 Minute Walk Test completed Annel Woodward [place] & [place] 4 14:59:54 12/22 Injection Only completed Danyelle [place] & [place] 4 07:02:09 05/28 Injection Only completed Susy Camargo [place] & [place] 3 10:23:09 05/05 Injection Only completed CASEY NASCIMENTO [address] , [place], [address] , [place] [facility] [place] & [place] 3 08:48:41 10/29 Colonoscopy completed Emma Olvera [place] [place] & [place] 5 11:19:29 02/21 esophagogastroduodenoscopy completed Maria Del Carmen Lewis [place] [facility] [place] & [place] 5 11:24:27 03/26 Colonoscopy completed Emma OSPINA [facility] & [place] 5 11:21:39 10/27 revision of total hip replacement completed Emma OSPINA [facility] & [place] 5 11:28:22 06/29 Hip Surgery completed Meaghan OSPINA [facility] & [place] 2 13:18:35 06/29 excision of mediastinal lymph nodes group completed Emma OSPINA [facility] & [place] 5 11:28:58 06/29 Other completed Meaghan OSPINA [facility] & [place] 2 13:18:35 opening of chest completed Emma OSPINA [facility] & [place] 5 11:27:45 operation on lung completed Rachel OSPINA [facility] & [place] 2 08:23:40 prosthetic arthropla sty of hip completed Rachel OSPINA [facility] & [place] 2 08:24:00 repair of musculoten dinous cuff of shoulder completed Rachel OSPINA [facility] & [place] 2 08:24:14 Imaging Results None recorded. Procedure Notes None recorded. Medical Equipment None Reported. Allergies No known drug allergies Medications Name Sig Start Date Stop Date Status Note LastModified by Organization Details LastModified Time amoxicillin 500 mg capsule Take 1 capsule every 8 hours by oral route. 03/11 completed Not Available Not Available Not Available promethazin e-DM 6.25 mg-15 mg/5 mL oral syrup Take 5 mL every 4 hours by oral route as needed. 07/28 completed Not Available Not Available Not Available prednisone 10 mg tablet TAKE 1 TABLET BY MOUTH 2 TIMES A DAY FOR 7 DAYS 04/25 completed Not Available Not Available Not Available ropinirole 1 mg tablet Take 1 tablet 3 times a day by oral route. active Not Available Not Available No t Available donepezil 5 mg tablet Take 1 tablet every day by oral route. 07/24 completed Not Available Not Available Not Available albuterol sulfate 2.5 mg/3 mL (0.083 %) solution for nebulizatio n INHALE CONTENTS OF 1 VIAL (3 ML) VIA NEBULIZER 2 TIMES A DAY NEEDED FOR SHORTNESS OF BREATH OR WHEEZING 2024 active Not Available Not Available Not Avai lable trazodone 50 mg tablet Take 1 tablet every day by oral route. 03/05 completed Not Available Not Available Not Available azithromyci n 250 mg tablet TAKE 2 TABLETS BY MOUTH ON DAY 1, THEN TAKE 1 TABLET DAILY ON DAYS 2 THROUGH 5 active Not Available Not Available No t Available donepezil 10 mg tablet 07/24 completed Not Available Not Available Not Available meloxicam 15 mg tablet Take 1 tablet every day by oral route. 03/05 completed Not Available Not Available Not Available ondansetron HCl 4 mg tablet TAKE 1 TABLET BY MOUTH EVERY 6 TO 8 HOURS NEEDED 04/15 completed Not Available Not Available Not Available prednisone 20 mg tablet 3 po x 3d,2 po x 3d, 1po x 3d then dc 03/11 completed Not Available Not Available Not Available testosteron e cypionate 100 mg/mL intramuscul ar oil INJECT 1 ML INTRAMUSC ULARLY EVERY 10 DAYS 2024 active Not Available Not Available Not Avai lable Accu-Chek Softclix Lancets active Not Available Not Available Not Available aspirin 81 mg tablet,errol yed release Take 1 tablet every day by oral route. active Not Available Not Available No t Available doxycycline monohydrate 100 mg tablet 07/28 completed Not Available Not Available Not Available oxycodone 15 mg tablet TAKE 1 TABLET BY MOUTH 3 TIMES A DAY NEEDED active Not Available Not Available No t Available terbinafine HCl 250 mg tablet Take 1 tablet every day by oral route. 03/05 completed Not Available Not Available Not Available famciclovir 500 mg tablet Take 1 tablet 3 times a day by oral route for 7 days. 01/26 completed Not Available Not Available Not Available oxycodone-a cetaminophe n 10 mg-325 mg tablet TAKE 1 TABLET BY MOUTH 3 TIMES A DAY NEEDED BUT AT TIMES MAY TAKE AN EXTRA 1/2 TABLET 01/26 completed Not Available Not Available Not Available tamsulosin 0.4 mg capsule TAKE ONE CAPSULE BY MOUTH AT BEDTIME active Not Available Not Available No t Available benzonatate 100 mg capsule TAKE 1 CAPSULE BY MOUTH EVERY 8 HOURS NEEDED 04/15 completed Not Available Not Available Not Available ropinirole 2 mg tablet Take 1 tablet 3 times a day by oral route. 07/02 completed Not Available Not Available Not Available omeprazole 20 mg capsule,del ayed release Take 1 capsule every day by oral route. 09/23 completed Not Available Not Available Not Available montelukast 10 mg tablet Take 1 tablet every day by oral route for 90 days. 01/26 completed Not Available Not Available Not Available oxycodone-a cetaminophe n 7.5 mg-325 mg tablet 01/26 completed Not Available Not Available Not Available levofloxaci n 750 mg tablet Take 1 tablet every day by oral route for 7 days. 07/28 completed Not Available Not Available Not Available albuterol sulfate HFA 90 mcg/actuati on aerosol inhaler INHALE 2 PUFFS BY MOUTH EVERY 4 HOURS NEEDED 2024 active Not Available Not Available Not Avai lable sertraline 50 mg tablet 01/26 completed Not Available Not Available Not Available hydroxyzine pamoate 25 mg capsule Take 1 capsule as needed by oral route at bedtime for 30 days. 04/22 completed Not Available Not Available Not Available Wellbutrin SR 200 mg tablet, 12 hr sustained-r elease Take 1 tablet twice a day by oral route. 07/24 completed Not Available Not Available Not Available Mucinex 600 mg tablet, extended release Take 1 tablet every 12 hours by oral route. 2024 active Not Available Not Available Not Avai lable cyclobenzap rine 5 mg tablet Take 1 tablet every 12 hours by oral route as needed for 15 days. 08/21 completed Not Available Not Available Not Available memantine 10 mg tablet one tablet daily for two weeks, then one tablet twice a day thereafte r 03/11 completed Not Available Not Available Not Available memantine 5 mg tablet Take by oral route for 30 days. 2024 active Not Available Not Available Not Avai lable duloxetine 20 mg capsule,del ayed release Take 1 {capsule} twice a day by oral route. 04/22 completed Not Available Not Available Not Available duloxetine 30 mg capsule,del ayed release Take 1 capsule every day by oral route. 10/07 completed Not Available Not Available Not Available duloxetine 60 mg capsule,del ayed release Take 1 capsule every day by oral route. 01/26 completed Not Available Not Available Not Available oxycodone 10 mg tablet 01/26 completed Not Available Not Available Not Available Suprep Bowel Prep Kit 17.5 gram-3.13 gram-1.6 gram oral solution 04/15 completed Not Available Not Available Not Available Incruse Ellipta 62.5 mcg/actuati on powder for inhalation Inhale 1 puff every day by inhalatio n route. 04/22 completed Not Available Not Available Not Available Accu-Chek Guide test strips active Not Available Not Available Not Available Trelegy Ellipta 100 mcg-62.5 mcg-25 mcg powder for inhalation INHALE 1 PUFF BY MOUTH EVERY DAY 09/08 completed Not Available Not Available Not Available roflumilast 250 mcg tablet Take by oral route for 28 days. active Not Available Not Available No t Available Accu-Chek Guide Me Glucose Meter one meter and pt to test two times a day please order test strips and lancets 1 box of each 90 day supply active Not Available Not Available No t Available Ubrelvy 100 mg tablet Take by oral route for 5 days. 08/21 completed Not Available Not Available Not Available Breztri Aerosphere 160 mcg-9mcg-4. 8mcg/actuat ion HFA aerosol inhaler inhale 2 puffs BY MOUTH 2 TIMES A DAY active Not Available Not Available No t Available Trelegy Ellipta 200 mcg-62.5 mcg-25 mcg powder for inhalation INHALE 1 PUFF BY MOUTH ONCE A DAY 01/26 completed Not Available Not Available Not Available Qulipta 60 mg tablet Take by oral route for 30 days. 08/21 completed Not Available Not Available Not Available Vitals Date Recorded Body height Body mass index (BMI) Body weight Oxygen saturation Oxygen saturation in Arterial blood by Pulse oximetry Heart rate Body temperature Systolic And Diastolic Provider Name and Address Organization Details Last Updated DateTime 5 170.18 cm 24.1 kg/m2 14649.2 2 g 99 % 99 % 87 /min 98.1 [degF] 119/66 mm[Hg] Kinza Nunez [facility] & [place] 5 14:23:32 Social History Question Answer Notes LastModified by Organizat ion Details LastModified Time Tobacco Smoking Status Never Smoker Zita teresa, [facility] & [place] 04/15/2022 10:04:04 Do You Have An Advance Directive? Yes [email or web address] Information not available 04/15/2022 Are You Blind Or Do You Have Difficulty Seeing? No [email or web address] Information not available 04/15/2022 Is Blood Transfusion Acceptable In An Emergency? Yes Information not available 05/19/2022 What Is Your Level Of Caffeine Consumption? Moderate [email or web address] Information not available 10/09/2022 Are You Deaf Or Do You Have Serious Difficulty Hearing? Yes Information not available 05/19/2022 What Type Of Diet Are You Following? REGULAR Information not available 05/19/2022 Have There Been Any Changes To Your Family Or Social Situation? No Information not available 05/19/2022 In General, Would You Say Your Health Is Good [email or web address] Information not available 04/15/2022 How Would You Describe The Condition Of Your Mouth And Teeth i ncluding False Teeth Or Dentures? Good [email or web address] Information not available 04/15/2022 Do You Have Chronic Pain? Yes [email or web address] Information not available 04/15/2022 Are You In A Pain Management Program? Yes [email or web address] Information not available 04/15/2022 Do You Take Opioids For Your Pain? Yes [email or web address] Information not available 04/15/2022 In The Past 7 Days, Did You Need Help From Others To Take Care Of Things Such As Laundry And Housekeep- Ing, Banking, Shopping, Using The Telephone, Food Preparation, Transportation, Or Taking Your Own Medications? No [email or web address] Information not available 04/15/2022 Do You Live Alone? No [email or web address] Information not available 04/15/2022 Does Your Home Have Any Fall Risks (un-level Floors, Unfastened Rugs, Poor Lighting, Etc)? No [email or web address] Information not available 04/15/2022 What Was The Date Of Your Most Recent Tobacco Screening? 05/24/2024 [email or web address] Information not available 01/17/2025 Do You Have Any Pets? Yes Information not available 05/19/2022 What Is Your Relationship Status? Information not available 05/19/2022 Do You Use Your Seat Belt Or Car Seat Routinely? Yes Information not available 05/19/2022 Are You Sexually Active? No Information not available 05/19/2022 Are You Passively Exposed To Smoke? No Information not available 05/19/2022 Do You Have Difficulty Walking Or Climbing Stairs? Yes Information no t available 05/19/2022 Sex: Unknown Functional Status Question Answer Note LastModified by [employer] ion Details LastModified Time Do you use any illicit or recreational drugs? No Information not available 05/19/2022 What is your level of alcohol consumption? None [email or web address] Information not available 04/15/2022 Do you have transportation difficulties? No Information not available 05/19/2022 Are you able to walk independently without assistance or assistive devices? [email or web address] Information not available 05/19/2022 Do you have difficulty doing errands alone? No Information not available 05/19/2022 Are you able to care for yourself independently? Yes Information not available 05/19/2022 Do you have difficulty dressing, bathing, grooming, or toileting? No Information not available 05/19/2022 What is your exercise level? Occasional Information not available 05/19/2022 Mental Status Question Answer Note LastModified by Organizat ion Details LastModified Time Do you feel stressed (tense, restless, nervous, or anxious, or unable to sleep at night)? [id number] Information not available 05/19/2022 Do you have difficulty concentrating, remembering or making decisions? Yes Information n ot available 05/19/2022 Family History Relationship Description Onset Age of this Age Resolved Age Notes LastModified by Organization Details LastModified Time Mother Malignant neoplastic disease 83 [email or web address] Not available 03/28 12:56:41 Mother Essential hypertension [email or web address] Not available 12:56:41 Mother Osteoarthrit is [email or web address] Not available 03/28 12:56:41 Father Heart failure 45 [email or web address] Not available 03/28 12:56:41 Father Coronary arterioscler osis [email or web address] Not available 03/28 12:56:41 Father Heart disease [email or web address] Not available 2023 16:23:59 Father Myocardial infarction [email or web address] Not available 01/17 11:29:50 Brother Diabetes mellitus [email or web address] Not available 03/28 12:56:41 Brother Heart disease [email or web address] Not available 2024 11:29:33 Medical History Condition Response Allergies/Hayfever Y Gout Y Other Y Arthritis Y Kidney Stones Y Polyps Y Ear or Hearing Problems Y Back Problems Y Stroke Y Lung Disease Y Depression Y COPD Y Anemia Y Reflux/GERD Y Sleep Apnea Y High Cholesterol Y Hypertension Y Immunizations Vaccine Type Date Status Note Provider Nam e and Address Organization Details Recorded Time Influenza, split virus, trivalent, preservative 0 completed Jodie teresa, [place] [facility] [place] & [place] 03/18/2024 16:22:55 pneumococcal polysaccharide PPV23 1 completed Jodie Noriega [place] & [place] 03/18/2024 16:22:55 Influenza, split virus, quadrivalent, preservative 7 completed Jodie [place]ie[place] 03/18/2024 16:22:55 Influenza, split virus, quadrivalent, preservative 8 completed Jodie [place]ie[place] 03/18/2024 16:22:55 Influenza, split virus, quadrivalent, PF 0 completed Jodie Leann [place] 03/18/2024 16:22:55 Pneumococcal conjugate PCV 13 4 completed Jodie Le[place] 03/18/2024 16:22:55 COVID-19 vaccine, vector-nr, rS-Ad26, PF, 0.5 mL 1 completed Jod[place] 03/18/2024 16:22:55 Influenza, split virus, quadrivalent, PF 6 completed Jod[place] 03/18/2024 16:22:55 Influenza, split virus, quadrivalent, PF 1 completed Jodie [place] [facility] & [place] 03/18/2024 16:22:55 Influenza, adjuvanted, quadrivalent, PF 2 completed Jodie [place] 03/18/2024 16:22:55 Influenza, adjuvanted, trivalent, PF 4 completed Raven Wu MD [address] [place], [address], [place] 04/25/2024 12:22:25 Td (adult) 3 completed Zita Villagomez [place] 07/28/2024 14:24:29 Past Encounters Encounter ID Performer Location Encounter Start Date Encounter Closed Date Diagnosis/Indication Diagnosis SNOMED-CT Code Diagnosis ICD10 Code Diagnosis IMO Codes Diagnosis Note [id number] Berry Sheets MD [facility] [address] [place] [address] 02/23/2025 12:49:56 02/23/2025 13:13:48 Acute exacerbation of chronic obstructive pulmonary disease 017552680 J44.1 patient is advised to continue home oxygen and neb treatments Collin history 2 puffs twice dailyAdvis ed to rinse mouth after useWe will start him on Amoxil and prednisone for 1 week [place] [facility]' pneumoconiosis [id number] J60 [id number] Kinza Oliver NP [facility] [address] [place] [address] 03/11/2025 14:02:01 03/11/2025 15:11:48 Pain of hip region 38115112 M25.250 [id number] follow up with PCP if not better in 3-4 daysaltern ate ice and heatgo to ER with any worsening of symptoms Health Concerns Section Related Observation LastModified by Organization Detai ls LastModified Time None Recorded Concern Status LastModified by Organization Details LastModified Time None Recorded Payers Encounter Date Sequence Insurance Name Policy Number Policy Villasenor Covered Member ID Villasenor Member ID Guarantor Name 03/11/2025 1 [facility] (MEDICARE REPLACEMENT/A DVANTAGE - HMO) [id number] Florentino Pickard [id number] Florentino Pickard Notes Date Note Type Note Provider Name and Address Organization Details Recorded Time 03/11/2025 text/html Pt is here today with 2 days of left hip pain after falling on buttocks. Pt had right hip replacement several years agoPt is having left backside pain with walkingPt isn't having any bruising or swellingPt is taking oxycodone for back without any improvement of painPt reports sitting and walking causes the greatest pain.Pt denies numbness and tingling of LLE and genital area Kinza Oliver NP [address], [place], [address], [facility] - [place] & [place] 03/22/2025 22:28:06
--- OUTSIDE RECORDS SUMMARY | 2025-04-28 18:55 | XMS_ITS | Continuity of Care Document ---
Author Organization [facility] [address] Address [address] [place] [address] Care Team Providers Care Retail Link Analyst Name Role Phone RAVEN WU Primary Care Provider Unavailabl e Assessment No assessment recorded. Plan of Treatment Reminders Order Date Submit Date Provider Last Modified By Organization Details Last Modified Time Details Appointments Establish ed Visit 15 min 2024 01:15P M Berry Sheets MD Not available Not available Not available Lab None recorded. Referral None recorded. Procedures None recorded. Surgeries None recorded. Imaging None recorded. Medication Orders Zithromax Z-Efren 250 mg tablet 2024 025 [facility], [address] [facility] [address] [place], [place], [id number], 03/30/2025 15:14:07 prednison e 10 mg tablet 2024 025 [email or web address] Not available 03/31/2025 10:19:57 Patient TargetsNo targets recorded. Patient InstructionsNo instructions recorded. Reason for Referral None Reported. Results Created Date Observation Date Name Description Value Unit Range Abnormal Flag Note LastModifiedBy Organization Detail LastModifiedTime 03/11/2003/11/2025 XR, hip, unila teral , 2 or 3 view No observ ation record ed. In-House Imaging - [facility] [address], [place], [address], 03/12/2025 14:45:22 Result Notes None recorded. 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 Zita [place] [place] 2 09:59:27 Erectile dysfunction 064739968 Active Z[place] 2 09:59:27 Patient encounter status 519780248 Active Z[place] 2 09:59:27 Nocturia 374553016 Active Z[place] 2 09:59:27 Viet hematuria 859922752 Active Z[place] [facility] [place] 2 09:59:27 Kidney stone 51235145 Active Z[place] 2 09:59:27 Screening status 774956921 Active [place] 2 09:59:27 Cramp in lower limb 127844916 Active Z[place] 2 09:59:27 Nicotine dependence 23656074 Active Z[place] 2 09:59:27 Esophageal varices without bleeding 06614384 Active Z[place] 2 09:59:28 Undifferent iated inflammator y polyarthrit is 719022557 Active [place] 2 09:59:28 Hypertensiv e disorder 28946971 Active [place] 2 09:59:28 Essential hypertensio n 16177358 Active Zita [place] [facility] [place] 2 09:59:28 Male hypogonadis m 12109753 Active Z[place] 2 09:59:28 Lung mass 155617097 Active Zita [place] [facility] 2 09:59:28 History of polyp of colon 332061325 Active Z[place] [facility] 2 09:59:28 Gout 67150516 Active Z[place] 2 09:59:28 Abnormality of hepatic vein 150832859 Active Z[place] 2 09:59:28 Chronic obstructive pulmonary disease 97137842 Active Z[place] 2 09:59:28 Memory impairment 497126992 Active [place] 2 09:59:28 Arthritis of knee 880577323 Active Z[place] 2 09:59:28 Sinusitis 62241914 Active Z[place] 2 09:59:28 [place] [employer] pneumoconio sis 10775914 Active Z[place] 2 09:59:28 Candidiasis of mouth 15666933 Active [place] 2 09:59:28 Gastroesoph ageal reflux disease 646004992 Active Z[place] [facility] [place] [facility] [place] & [place] 2 09:59:28 Fatigue 00694754 Active [place] 2 09:59:28 Daytime somnolence 990109938206 Active Z[place] [facility] [place] [facility] [place] & [place] 2 09:59:28 Dyspnea on exertion 92571684 Active Z[place] [facility] [place] 2 09:59:28 Hyperlipide tierra 32538449 Active [place] 2 09:59:28 Acute exacerbatio n of chronic obstructive pulmonary disease 809604881 Active [place] 2 09:59:28 Large prostate 229639438 Active [place] 2 09:59:28 Obstructive sleep apnea syndrome 38910138 Active [place] 2 09:59:28 Computed tomography result abnormal 905478745 Active [place] 2 09:59:28 Disease of liver 807094372 Active Zita [place] [facility] [place] 2 09:59:28 Hypersomnia 33030506 Active [place] 2 09:59:28 Measurement finding 675765584 Active Z[place] [facility] [place] 2 09:59:28 Depression - motion Active [place] 2 09:59:28 Constipatio n 95363662 Active [place] 2 09:59:28 Counseling Active [place] 2 09:59:28 Needs influenza immunizatio n 326259594 Active 2009 Zita [place] 2 09:59:27 Low back pain 424301323 Active 2009 Zita [place] 2 09:59:27 Dysuria 44161437 Active 2009 Zita [place] 2 09:59:27 Allergic rhinitis 42154660 Active 2010 Zita [place] 2 09:59:28 Fever 121280731 Active 2010 Zita [place] 2 09:59:28 Cough 16117534 Active 2010 Zita [place] 2 09:59:28 Precordial pain 20918518 Active 2010 Zita [place] 2 09:59:27 Transient insomnia 430791367 Active 2010 Zita [place] [facility] 2 09:59:27 Pleurisy without effusion or active tuberculosi s 416261015 Active 2010 Zita [place] 2 09:59:27 Anemia due to chronic blood loss 023730227 Active 2010 Zita [place] 2 09:59:28 Lumbar spondylosis 348199893 Active 2022 Danyelle [place] 3 15:49:53 Degeneratio n of lumbar interverteb ral disc 34696522 Active 2022 Danyelle [place] [facility] [place] 3 15:49:57 Arthritis of facet joint of lumbar spine 3557048894918 9101 Active 2022 Danyelle [place] [facility] [place] 3 15:49:58 Pain in left sacroiliac joint 8968619758983 9102 Active 2023 Danyelle [place] [facility] [place] 4 11:43:59 Myofascial pain 549609566 Active 2023 Danyelle [place] [facility] [place] 4 07:00:26 Notes:Some problems listed i n Documents: #[id number], #[id number] could not be added to this patient's chart. Please review these documents and add these problems to the patient's chart manually as needed. Problem Notes None recorded. Procedures Surgical History Date Name Laterality Status Provider Name and Address Organization Details Recorded Time 09/08 6 Minute Walk Test completed Annel [place] [facility] [place] [facility] [place] & [place] 5 15:15:28 05/24 6 Minute Walk Test completed [place]el [place] [facility] [place] [facility] [place] & [place] 4 14:59:54 12/22 Injection Only completed Danyelle Jensen [place] [facility] [place] & [place] 4 07:02:09 05/28 Injection Only completed Susy Camargo [place] [facility] [place] 3 10:23:09 05/05 Injection Only completed CASEY NASCIMENTO [address], [place], [address] , [place] [facility] [place] 3 08:48:41 10/29 Colonoscopy completed Emma Olvera [place] [facility] [place] & [place] 5 11:19:29 02/21 esophagogastroduodenoscopy completed Maria Del Carmen mandeep May [facility] & [place] 5 11:24:27 03/26 Colonoscopy completed Emma [facility] & [place] 5 11:21:39 10/27 revision of total hip replacement completed Emma [facility] - [place] & [place] 5 11:28:22 06/29 Hip Surgery completed Meaghan Miguel James [facility] - [place] & [place] 2 13:18:35 06/29 excision of mediastinal lymph nodes group completed Emma [facility] & [place] 5 11:28:58 06/29 Other completed Meaghan Miguel [facility] & [place] 2 13:18:35 opening of chest completed Emma [facility] & [place] 5 11:27:45 operation on lung completed Rachel [facility] & [place] 2 08:23:40 prosthetic arthropla sty of hip completed Rachel [facility] & [place] 2 08:24:00 repair of musculoten dinous cuff of shoulder completed Rachel [facility] & [place] 2 08:24:14 Imaging Results None recorded. Procedure [...] height Body mass index (BMI) Body weight Body temperature Oxygen saturation Oxygen saturation in Arterial blood by Pulse oximetry Heart rate Systolic And Diastolic Provider Name and Address Organization Details Last Updated DateTime 5 170.18 cm 24.1 kg/m2 91937.2 2 g 98.2 [degF] 97 % 97 % 63 /min 114/67 mm[Hg] Coleen Breen [facility] & [place] 5 13:07:04 Social History Question Answer Notes LastModified by [employer] Details LastModified Time Tobacco Smoking Status Never Smoker Zita teresa, [facility] & [place] 04/15/2022 10:04:04 Do You Have An Advance Directive? Yes [email or web address] Information not available 04/15/2022 Are You Blind Or Do You Have Difficulty Seeing? No [email or web address] Information not available 04/15/2022 Is Blood Transfusion Acceptable In An Emergency? Yes Information not available 05/19/2022 What Is Your Level Of Caffeine Consumption? Moderate [email or web address] Information not available 10/09/2022 Are You Deaf Or Do You Have Serious Difficulty Hearing? Yes Information not available 05/19/2022 What Type Of Diet Are You Following? REGULAR Information not available 05/19/2022 Have There Been Any Changes To Your Family Or Social Situation? No Information not available 05/19/2022 In General, Would You Say Your Health Is Good [email or web address] Information not available 04/15/2022 How Would You Describe The Condition Of Your Mouth And Teeth i ncluding False Teeth Or Dentures? Good [email or web address] Information not available 04/15/2022 Do You Have Chronic Pain? Yes [email or web address] Information not available 04/15/2022 Are You In A Pain Management Program? Yes [email or web address] Information not available 04/15/2022 Do You Take Opioids For Your Pain? Yes Information not available 04/15/2022 In The Past 7 Days, Did You Need Help From Others To Take Care Of Things Such As Laundry And Housekeep- Ing, Banking, Shopping, Using The Telephone, Food Preparation, Transportation, Or Taking Your Own Medications? No [email or web address] Information not available 04/15/2022 Do You Live Alone? No [email or web address] Information not available 04/15/2022 Does Your Home Have Any Fall Risks (un-level Floors, Unfastened Rugs, Poor Lighting, Etc)? No [email or web address] Information not available 04/15/2022 What Was The [...] Functional Status Question Answer Note LastModified by Organizat ion Details LastModified Time Do you use any illicit or recreational drugs? No Information not available 05/19/2022 What is your level of alcohol consumption? None [email or web address] Information not available 04/15/2022 Do you have [...] anxious, or unable to sleep at night)? [id number] Information not available 05/19/2022 Do you have difficulty concentrating, remembering or making decisions? Yes Information n ot available 05/19/2022 Family History Relationship Description Onset Age of this Age Resolved Age Notes LastModified by Organization Details LastModified Time Mother Malignant neoplastic disease 83 [email or web address] Not available 03/28 12:56:41 Mother Essential hypertension [email or web address] Not available 12:56:41 Mother Osteoarthrit is [email or web address] Not available 03/28 12:56:41 Father Heart failure 45 [email or web address] Not available 03/28 12:56:41 Father Coronary arterioscler osis [email or web address] Not available 03/28 12:56:41 Father Heart disease [email or web address] Not available 2023 16:23:59 Father Myocardial infarction [email or web address] Not available 01/17 11:29:50 Brother Diabetes mellitus [email or web address] Not available 03/28 12:56:41 Brother Heart disease [email or web address] Not available 2024 11:29:33 Medical History Condition Response Gout Y Other Y Kidney Stones Y Lung Disease Y COPD Y Depression Y Arthritis Y Polyps Y Stroke Y High Cholesterol Y Allergies/Hayfever Y Ear or Hearing Problems Y Anemia Y Back Problems Y Reflux/GERD Y Sleep Apnea Y Hypertension Y Immunizations Vaccine Type Date Status Note Provider Nam e and Address Organization Details Recorded Time Influenza, split virus, trivalent, preservative 0 completed Jodie teresa, [place] [facility] [place] & [place] 03/18/2024 16:22:55 pneumococcal polysaccharide PPV23 1 completed Jodie Noriega [place] [facility] [place] & [place] 03/18/2024 16:22:55 Influenza, split virus, quadrivalent, preservative 7 completed Jodie teresa[place] & [place] 03/18/2024 16:22:55 Influenza, split virus, quadrivalent, preservative 8 completed Jodie Leann [place] [facility] [facility] & [place] 03/18/2024 16:22:55 Influenza, split virus, quadrivalent, PF 0 completed Jodie Leann [place] 03/18/2024 16:22:55 Pneumococcal conjugate PCV 13 4 completed Jodie [place] [facility] 03/18/2024 16:22:55 COVID-19 vaccine, vector-nr, rS-Ad26, PF, 0.5 mL 1 completed Jod[place] [facility] 03/18/2024 16:22:55 Influenza, split virus, quadrivalent, PF 6 completed Jod[place] 03/18/2024 16:22:55 Influenza, split virus, quadrivalent, PF 1 completed Jod[place] 03/18/2024 16:22:55 Influenza, adjuvanted, quadrivalent, PF 2 completed Jodie [place] 03/18/2024 16:22:55 Influenza, adjuvanted, trivalent, PF 4 completed Raven Wu MD [address] [facility] [address], [place], [address], [place] [facility] [place] 04/25/2024 12:22:25 Td (adult) 3 completed Zita Villagomez [place] [facility] 07/28/2024 14:24:29 Past Encounters Encounter ID Performer Location Encounter Start Date Encounter Closed Date Diagnosis/Indication Diagnosis SNOMED-CT Code Diagnosis ICD10 Code Diagnosis IMO Codes Diagnosis Note [id number] Kinza Oliver NP [facility] [address] [facility] [place] [address] 03/11/2025 14:02:03/11/2025 15:11:48 Pain of hip region 83783208 M25.442 [id number] follow up with PCP if not better in 3-4 daysaltern ate ice and heatgo to ER with any worsening of symptoms [id number] Berry Sheets MD [facility] [address] [place] [address] 03/28/2025 12:54:55 03/28/2025 13:39:26 Acute exacerbation of chronic obstructive pulmonary disease 559717483 J44.1 982219 patient is advised to continue home oxygen and neb treatments Breztri 2 puffs twice dailyAdvis ed to rinse mouth after usewe will start him on Zithromax along with prednisone for 1 week Confluent fibrosis of lung 50449080 J84.10 3182 Health Concerns Section Related Observation LastModified by Organization Detai ls LastModified Time None Recorded Concern Status LastModified by Organization Details LastModified Time None Recorded Payers Encounter Date Sequence Insurance Name Policy Number Policy Villasenor Covered Member ID Villasenor Member ID Guarantor Name 03/28/2025 1 [facility] (MEDICARE REPLACEMENT/A DVANTAGE - HMO) [id number] Florentino Pickard [id number] Florentino Pickard Notes Date Note Type Note Provider Name and Address Organization Details Recorded Time 03/28/2025 text/html ROS as noted in the HPI 69 years old white male with history of COPD presents for evaluation patient has been having worsening breathlessness along with cough wheeze and mucoid expectoration complains of smothering spells along with impaired effort tolerance tiredness and fatiguePatient denies any fever hemoptysis or weight loss Berry Sheets MD [address], [place], [address], [facility] & [place] 03/28/2025 13:25:29
--- OUTSIDE RECORDS SUMMARY | 2025-04-28 18:56 | XMS_ITS | Data Portability ---
Author Organization [facility] & [place] [facility] ADMIN Address [address] [place] [address] Care Team Providers Care Accelerator Technician Name Role Phone RAVEN WU Primary Care Provider Unavailabl e Assessment No assessment recorded. Plan of Treatment Reminders Order Date Submit Date Provider Last Modified By Organization Details Last Modified Time Details Appointments Establi shed Visit 15 min 2024 01:15P M Berry Sheets MD Not available Not available Not available Lab None recorde d. Referral pulmona ry rehab referra l 2024 025 [email or web address] [facility], [address], [address], [place], [address], 02/23/2025 08:28:39 Procedures None recorde d. Surgeries None recorde d. Imaging XR, hip, unilate ral, 2 or 3 view 2024 025 [place] [facility] [facility], [address], [place], [address], 03/11/2025 15:12:48 Medication Orders Dalires p 250 mcg tablet [address] [facility], [address] [place] [address], [id number], 04/25/2025 13:55:40 Mucinex 600 mg tablet, extende d release [address] [facility], [address] [place] [address], [id number], 04/26/2025 12:26:42 Zithrom ax Z-Efren 250 mg tablet 2024 025 DAGO Paloma[facility], [address] [address] [place], [id number], 03/30/2025 15:14:07 prednis one 10 mg tablet 2024 025 [email or web address] Not available 03/31/2025 10:19:57 Patient TargetsNo targets recorded. Patient InstructionsNo instructions recorded. Reason for Referral Pulmonary Rehab Referral for Massive fibrosis of lung Referring Physician: Berry Sheets, Pulmonary Disease, [id number] Encounter Date: 01/26/2025 Results Created Date Observation Date Name Description Value Unit Range Abnormal Flag Note LastModifiedBy Organization Detail LastModifiedTime 03/11/20 25 03/11/2025 XR, hip, unila teral , 2 or 3 view No observ ation record ed. [email or web address] In-House Imaging - [facility] [address], [place], [address], 03/12/2025 14:45:22 Result Notes None recorded. Problems Name Problem SNOMED Code Status Onset Date Resolution Date Notes Provider Name and Address Organization Details Recorded Time Restless legs syndrome 42907588 Active Zita Couch [place] [facility] [place] 09:59:27 Upper respiratory infection 90981411 Active [place] [facility] [place] 2 09:59:27 Dyspnea 171922307 Active [place] [facility] [place] 2 09:59:27 Left lower zone pneumonia 247877821 Active [place] 2 09:59:27 Massive fibrosis of lung 41863243 Active [place] 2 09:59:27 Erectile dysfunction 512241874 Active [place] [facility] [place] 2 09:59:27 Patient encounter status 754213150 Active [place] [facility] & [place] 2 09:59:27 Nocturia 881682828 Active [place] [place] 2 09:59:27 Viet hematuria 405046161 Active Z[place] [facility] [place] & [place] 2 09:59:27 Kidney stone 80682303 Active [place] [facility] [place] 2 09:59:27 Screening status 643114868 Active [place] [facility] & [place] 2 09:59:27 Cramp in lower limb 235987962 Active [place] & [place] 2 09:59:27 Nicotine dependence 36080820 Active [place] & [place] 2 09:59:27 Esophageal varices without bleeding 26096961 Active [place] [facility] 2 09:59:28 Undifferent iated inflammator y polyarthrit is 773717944 Active [place] [facility] & [place] 2 09:59:28 Hypertensiv e disorder 43981817 Active [place] [facility] [place] 2 09:59:28 Essential hypertensio n 19516220 Active [place] [facility] [place] 2 09:59:28 Male hypogonadis m 73227110 Active [place] [facility] & [place] 2 09:59:28 Lung mass 538909770 Active [place] [facility] [facility] & [place] 2 09:59:28 History of polyp of colon 043341776 Active [place] [facility] & [place] 2 09:59:28 Gout 27771531 Active [place] [facility] [facility] & [place] 2 09:59:28 Abnormality of hepatic vein 970557623 Active [place] [facility] & [place] 2 09:59:28 Chronic obstructive pulmonary disease 93175174 Active [place] [facility] [place] 2 09:59:28 Memory impairment 861564920 Active [place] & [place] 2 09:59:28 Arthritis of knee 427727279 Active [place] [facility] & [place] 2 09:59:28 Sinusitis 53673141 Active [place] & [place] 2 09:59:28 [employer]' pneumoconio sis 90548745 Active [place] [facility] & [place] 2 09:59:28 Candidiasis of mouth 70554286 Active [place] [facility] 2 09:59:28 Gastroesoph ageal reflux disease 800226769 Active [place] [facility] 2 09:59:28 Fatigue 44884385 Active [place] 2 09:59:28 Daytime somnolence 950517206994 Active [place] & [place] 2 09:59:28 Dyspnea on exertion 49844957 Active Izta [place] & [place] 2 09:59:28 Hyperlipide tierra 01105549 Active [place] [facility] & [place] 2 09:59:28 Acute exacerbatio n of chronic obstructive pulmonary disease 649287644 Active [place] & [place] 2 09:59:28 Large prostate 570694026 Active [place] 2 09:59:28 Obstructive sleep apnea syndrome 18885671 Active [place] & [place] 2 09:59:28 Computed tomography result abnormal 936041607 Active [place] & [place] 2 09:59:28 Disease of liver 328892150 Active [place] 2 09:59:28 Hypersomnia 24769497 Active [place] & [place] 2 09:59:28 Measurement finding 278026299 Active [place] & [place] 2 09:59:28 Depression - motion Active [place] 2 09:59:28 Constipatio n 61071526 Active [place] 2 09:59:28 Counseling Active [place] 2 09:59:28 Needs influenza immunizatio n 130424012 Active 2009 Z[place] 2 09:59:27 Low back pain 335516907 Active 2009 Z[place] & [place] 2 09:59:27 Dysuria 14663512 Active 2009 Z[place] 2 09:59:27 Allergic rhinitis 77666317 Active 2010 Z[place] 2 09:59:28 Fever 113070967 Active 2010 Z[place] 2 09:59:28 Cough 93713783 Active 2010 Z[place] 2 09:59:28 Precordial pain 45341661 Active 2010 Z[place] & [place] 2 09:59:27 Transient insomnia 232836688 Active 2010 Z[place] 2 09:59:27 Pleurisy without effusion or active tuberculosi s 508032066 Active 2010 Zita Velazcoch [place] & [place] 2 09:59:27 Anemia due to chronic blood loss 812834052 Active 2010 Z[place] 2 09:59:28 Lumbar spondylosis 910990981 Active 2022 Danyelle [place] & [place] 3 15:49:53 Degeneratio n of lumbar interverteb ral disc 50229486 Active 2022 Danyelle [place] & [place] 3 15:49:57 Arthritis of facet joint of lumbar spine 9958632997260 9101 Active 2022 Danyelle [place] [facility] & [place] 3 15:49:58 Pain in left sacroiliac joint 9258091783993 9102 Active 2023 Danyelle [place] & [place] 4 11:43:59 Myofascial pain 695331999 Active 2023 Danyelle [place] & [place] 4 07:00:26 Notes:Some problems listed i n Documents: #[id number], #[id number] could not be added to this patient's chart. Please review these documents and add these problems to the patient's chart manually as needed. Problem Notes None recorded. Procedures Surgical History Date Name Laterality Status Provider Name and Address Organization Details Recorded Time 09/08 6 Minute Walk Test completed [place]el [place] [facility] & [place] 5 15:15:28 05/24 6 Minute Walk Test [place]el Trace [place] [facility] & [place] 4 14:59:54 12/22 Injection Only completed Danyelle Jensen [place] [facility] & [place] 4 07:02:09 05/28 Injection Only completed Susy Camargo [place] & [place] 3 10:23:09 05/05 Injection Only completed CECIL NASCIMENTO [address], [place], [address] , [place] [facility] [place] & [place] 3 08:48:41 10/29 Colonoscopy completed Emma [place]vera [place] [place] & [place] 5 11:19:29 02/21 esophagogastroduodenoscopy completed Maria Del Carmen Lewis [place] & [place] 5 11:24:27 03/26 Colonoscopy completed Emma [place]amer [place] [facility] & [place] 5 11:21:39 10/27 revision of total hip replacement completed [place] [facility] & [place] 5 11:28:22 06/29 Hip Surgery completed [place]aghan Ramirez [place] & [place] 2 13:18:35 06/29 excision of mediastinal lymph nodes group completed [place]vera [place] [facility] & [place] 5 11:28:58 06/29 Other completed Meaghan NUNEZ [facility] & [place] 2 13:18:35 opening of chest completed Emma Luonahomi ENRIQUE [facility] & [place] 5 11:27:45 operation on lung completed Rachel NUNEZ [facility] & [place] 2 08:23:40 prosthetic arthropla sty of hip completed Rachel NUNEZ [facility] & [place] 2 08:24:00 repair of musculoten dinous cuff of shoulder completed Rachel NUNEZ [facility] & [place] 2 08:24:14 Imaging Results None recorded. Procedure [...] Details Last Updated DateTime 5 170.18 cm 24.4 kg/m2 18447.6 9 g 98.2 [degF] 98 % 98 % 73 /min 120/63 mm[Hg] Coleen Breen [facility] & [place] 5 10:50:25 Date Recorded Body height Body mass index (BMI) Body weight Body temperature Oxygen saturation Oxygen saturation in Arterial blood by Pulse oximetry Heart rate Systolic And Diastolic Provider Name and Address Organization Details Last Updated DateTime 5 170.18 cm 24.4 kg/m2 61104.4 1 g 98.4 [degF] 95 % 95 % 74 /min 103/60 mm[Hg] Coleen OSPINA [facility] & [place] 5 13:02:42 Date Recorded Body height Body mass index (BMI) Body weight Oxygen saturation Oxygen saturation in Arterial blood by Pulse oximetry Heart rate Body temperature Systolic And Diastolic Provider Name and Address Organization Details Last Updated DateTime 5 170.18 cm 24.1 kg/m2 98657.2 2 g 99 % 99 % 87 /min 98.1 [degF] 119/66 mm[Hg] Kinza NUNEZ [facility] & [place] 5 14:23:32 Date Recorded Body height Body mass index (BMI) Body weight Body temperature Oxygen saturation Oxygen saturation in Arterial blood by Pulse oximetry Heart rate Systolic And Diastolic Provider Name and Address Organization Details Last Updated DateTime 5 170.18 cm 24.1 kg/m2 76039.2 2 g 98.2 [degF] 97 % 97 % 63 /min 114/67 mm[Hg] Coleen NUNEZ [facility] & [place] 5 13:07:04 Date Recorded Body height Body temperature Oxygen saturation Oxygen saturation in Arterial blood by Pulse oximetry Heart rate Body mass index (BMI) Body weight Systolic And Diastolic Provider Name and Address Organization Details Last Updated DateTime 5 170.18 cm 98.2 [degF] 98.2 % 98.2 % 87 /min 25.3 kg/m2 48841.2 5 g 134/67 mm[Hg] Coleen NUNEZ [facility] & [place] 5 12:55:12 Social History Question Answer Notes LastModified by Organizat ion Details LastModified Time Tobacco Smoking Status Never Smoker ENRIQUE Dela Cruz [facility] & [place] 04/15/2022 10:04:04 Do You Have An Advance Directive? Yes [email or web address] Information not available 04/15/2022 Are You Blind Or Do You Have Difficulty Seeing? No [email or web address] Information not available 04/15/2022 Is Blood Transfusion Acceptable In An Emergency? Yes Information not available 05/19/2022 What Is Your Level Of Caffeine Consumption? Moderate [email or web address] Information not available 10/09/2022 Are You Deaf Or Do You Have Serious Difficulty Hearing? Yes Information not available 05/19/2022 What Type Of Diet Are You Following? REGULAR Information not available 05/19/2022 Have There Been Any Changes To Your Family Or Social Situation? No Information not available 05/19/2022 In General, Would You Say Your Health Is Good Information not available 04/15/2022 How Would You Describe The Condition Of Your Mouth And Teeth i ncluding False Teeth Or Dentures? Good [email or web address] Information not available 04/15/2022 Do You Have Chronic Pain? Yes [email or web address] Information not available 04/15/2022 Are You In A Pain Management Program? Yes [email or web address] Information not available 04/15/2022 Do You Take Opioids For Your Pain? Yes [email or web address] Information not available 04/15/2022 In The Past 7 Days, Did You Need Help From Others To Take Care Of Things Such As Laundry And Housekeep- Ing, Banking, Shopping, Using The Telephone, Food Preparation, Transportation, Or Taking Your Own Medications? No [email or web address] Information not available 04/15/2022 Do You Live Alone? No [email or web address] Information not available 04/15/2022 Does Your Home Have Any Fall Risks (un-level Floors, Unfastened Rugs, Poor Lighting, Etc)? No [email or web address] Information not available 04/15/2022 What Was The [...] is your level of alcohol consumption? None [email or web address] Information not available 04/15/2022 Do you have [...] anxious, or unable to sleep at night)? [id number] Information not available 05/19/2022 Do you have difficulty concentrating, remembering or making decisions? Yes Information n ot available 05/19/2022 Family History Relationship Description Onset Age of this Age Resolved Age Notes LastModified by Organization Details LastModified Time Mother Malignant neoplastic disease 83 [email or web address] Not available 03/28 12:56:41 Mother Essential hypertension [email or web address] Not available 12:56:41 Mother Osteoarthrit is [email or web address] Not available 03/28 12:56:41 Father Heart failure 45 [email or web address] Not available 03/28 12:56:41 Father Coronary arterioscler osis [email or web address] Not available 03/28 12:56:41 Father Heart disease [email or web address] Not available 2023 16:23:59 Father Myocardial infarction [email or web address] Not available 01/17 11:29:50 Brother Diabetes mellitus [email or web address] Not available 03/28 12:56:41 Brother Heart disease [...] split virus, trivalent, preservative 0 completed Jod[place] [facility] & [place] 03/18/2024 16:22:55 pneumococcal polysaccharide PPV23 1 completed Jod[place] [facility] & [place] 03/18/2024 16:22:55 Influenza, split virus, quadrivalent, preservative 7 completed Jodie [place] [facility] & [place] 03/18/2024 16:22:55 Influenza, split virus, quadrivalent, preservative 8 completed Jodie [place] [facility] & [place] 03/18/2024 16:22:55 Influenza, split virus, quadrivalent, PF 0 completed Jod[place] [facility] & [place] 03/18/2024 16:22:55 Pneumococcal conjugate PCV 13 4 completed [place]od[place] 03/18/2024 16:22:55 COVID-19 vaccine, vector-nr, rS-Ad26, PF, 0.5 mL 1 completed Jodie [place] [facility] & [place] 03/18/2024 16:22:55 Influenza, split virus, quadrivalent, PF 6 completed Jod[place] 03/18/2024 16:22:55 Influenza, split virus, quadrivalent, PF 1 completed [place] 03/18/2024 16:22:55 Influenza, adjuvanted, quadrivalent, PF 2 completed Jodie teresa, [place] [facility] [place] 03/18/2024 16:22:55 Influenza, adjuvanted, trivalent, PF 4 completed Raven Wu MD [address] [facility], [place], [address], [place] 04/25/2024 12:22:25 Td (adult) 3 completed Zita teresa, [place] [facility] [place] & [place] 07/28/2024 14:24:29 Past Encounters Encounter ID Performer Location Encounter Start Date Encounter Closed Date Diagnosis/Indication Diagnosis SNOMED-CT Code Diagnosis ICD10 Code Diagnosis IMO Codes Diagnosis Note [id number] Raven Wu MD [address] [place] [address] 04/15/2022 09:55:19 04/15/2022 10:40:53 Adult health examination 825734028 Z00.00 Administra tion of influenza vaccine 22987242 Z23 Male hypogonadism 694365 06 E29.1 Dementia 39820268 F03.90 Chronic ob structive pulmonary disease 20999697 J44.9 Depressive disorder 3548 9007 F32.A Arthritis of left knee joint 8269261488 809894 M13.862 [id number] Madison Bradshaw MD [facility] [address] [place] [address] 04/22/2022 14:16:24 04/22/2022 14:37:43 [employer]' pneumoconiosis 69503377 J60 Patient instructed to continue with the use of his Trelegy and use his Rita more liberally. Will check full PFTs with [facility]. Will refer patient to the pulmonary rehab program for further assessment and management . Massive fi brosis of lung 07686251 J84.10 Patient instructed to continue with the use of Trelegy. Patient to use his Rita more liberally. Patient is up-to-date on his flu vaccine for this season. Dyspnea on exertion 6084 5006 R06.09 Patient recommende d to exercise as tolerated and use his Rita on a p.r.n. basis and more liberally. Will send him a new prescripti on. Obstructiv e sleep apnea syndrome 83894195 G47.33 Patient instructed to continue with the use of his CPAP and comply with the cleaning instructio ns and supply changes. [id number] Raven Wu MD [address] [place] [address] 05/05/2022 12:52:02 05/05/2022 14:19:19 Pain of right hip joint 9166067728 52751 M25.551 [id number] Drake Weathers MD [address] [place] [id number] 05/29/2022 11:45:05 05/29/2022 11:57:32 Abnormal renal function 56492161 R94.4 [id number] Raven Wu MD [address] [place] [address] 07/24/2022 11:25:41 07/24/2022 11:51:56 Migraine 39636170 G43.909 We will try samples of Ubrelvy. Hypoglycemia 139601777 E 16.2 [id number] Raven Wu MD [address] [place] [address] 09/23/2022 14:47:25 09/23/2022 15:19:36 Osteoarthritis 451739794 M19.90 [id number] Madison Bradshaw MD [facility] [address] [place] [address] 10/09/2022 10:44:24 10/09/2022 11:04:57 [employer] pneumoconiosis 15946039 J60 Patient instructed to continue with the use of his Trelegy and use his Rita on a as needed basis.PFTs with [facility] done recently were reviewed and discussed with the patient, there is evidence of obstructio n and decrease in FEV1 down to 47% predicted. Patient instructed to continue with the pulmonary rehab program. Massive fi brosis of lung 51692915 J84.10 Patient instructed to continue with the use of Trelegy.Cecil gupta to use his Rita more liberally. Dyspnea on exertion 6084 5006 R06.09 Patient recommende d to exercise as tolerated and use his Rita on a p.r.n. basis. Obstructiv e sleep apnea syndrome 53805596 G47.33 Patient instructed to continue with the use of his CPAP and comply with the cleaning instructio ns and supply changes. [id number] Raven Wu MD [address] [place] [phone] 11/05/2022 14:47:09 11/05/2022 15:21:07 Onychomycosis 216160436 B35.1 Hypogonadism 97404535 E2 9.1 Chronic ob structive pulmonary disease 82903278 J44.9 [id number] Dane Cao MD [facility] [address] [place], [place] [address] 01/06/2023 09:23:31 01/06/2023 10:18:16 Lumbar spondylosis 190042680 M47.896 Low back pain 339008315 M54.50 Degenerati on of lumbar intervertebral disc 88963627 M51.36 Arthritis of facet joint of lumbar spine 0499921820 8074360 M46.96 [id number] Raven Wu MD [address] [place] [phone] 01/21/2023 10:50:48 01/21/2023 11:10:47 Prediabetes 542386807 R73.03 Hyperlipidemia 73266304 E78.5 Fatigue 26789230 R53.83 [id number] Dane Cao MD [facility] [address] [place] [address] 01/28/2023 09:06:42 01/28/2023 11:03:21 Lumbar spondylosis 374496748 M47.896 Low back pain 845351068 M54.50 Degenerati on of lumbar intervertebral disc 65862742 M51.36 Arthritis of facet joint of lumbar spine 8463793396 4639644 M46.96 [id number] JACE KEENE PA-C [facility] [address] [place] [address] 03/05/2023 13:00:17 03/05/2023 13:39:42 Lumbar spondylosis 541657345 M47.896 Low back pain 711028363 M54.50 Degenerati on of lumbar intervertebral disc 46776182 M51.36 Arthritis of facet joint of lumbar spine 8768635211 9201705 M46.96 [id number] Madison Bradshaw MD [facility] [address] [place] [address] 04/14/2023 10:56:15 04/14/2023 11:12:16 [employer] pneumoconiosis 47354155 J60 Patient instructed to continue with the use of his Trelegy.Cecil gupta instructed to use his Rita on a as needed basis.Naa ent instructed to call if there is any new changes. Massive fi brosis of lung 44265248 J84.10 Patient instructed to continue with the use of Trelegy.Cecil gupta to use his Rita more liberally. Dyspnea on exertion 6084 5006 R06.09 Patient recommende d to exercise as tolerated and use his Rita on a p.r.n. basis and will send him refill. Obstructiv e sleep apnea syndrome 39332866 G47.33 Patient instructed to continue with the use of his CPAP and comply with the cleaning instructio ns and supply changes. Immunization advised 310 421402 Z71.9 Patient is up-to-date on his flu vaccine for this season.Lily bell recommende d to receive RSV vaccinatio n and will send an order to his pharmacy.Josy weaver recommende d to receive COVID-19 vaccine. [id number] Dane Cao MD [facility] [address] [place] [address] 05/05/2023 13:39:53 05/05/2023 14:36:01 Lumbar spondylosis 373262750 M47.896 Low back pain 277723695 M54.50 Degenerati on of lumbar intervertebral disc 28815517 M51.36 Arthritis of facet joint of lumbar spine 7704080264 6684003 M46.96 Spinal ent hesopathy of lumbosacral region 5007170692 47705 M46.07 [id number] Dane Cao MD [facility] [address] [place] [address] 05/28/2023 12:59:11 05/28/2023 13:23:59 Lumbar spondylosis 234225446 M47.896 Low back pain 286152144 M54.50 Degenerati on of lumbar intervertebral disc 06722447 M51.36 Arthritis of facet joint of lumbar spine 2804683129 2896409 M46.96 Spinal ent hesopathy of lumbosacral region 2972444289 40913 M46.07 [id number] Madison Bradshaw MD [facility] [address] [place] [address] 06/12/2023 11:32:38 06/12/2023 11:42:43 [employer] pneumoconiosis 78379561 J60 Patient instructed to continue with the use of his Trelegy.Cecil gupta instructed to use his Rita on a as needed basis.Naa ent instructed to call if there is any new changes. Massive fi brosis of lung 03936828 J84.10 Patient instructed to continue with the use of Trelegy.Cecil gupta to use his Rita more liberally. Dyspnea on exertion 6084 5006 R06.09 Patient recommende d to exercise as tolerated and use his Rita on a p.r.n. basis. Obstructiv e sleep apnea syndrome 35774718 G47.33 Patient instructed to continue with the use of his CPAP and comply with the cleaning instructio ns and supply changes. Immunization advised 310 [id number] Z71.9 Patient is up-to-date on his flu vaccine for this season.Lily bell recommende d to receive RSV vaccinatio n and will send an order to his pharmacy.Josy weaver recommende d to receive COVID-19 vaccine. Acute exac erbation of chronic obstructive pulmonary disease 156382200 J44.1 Given the acute worsening of patient's symptoms then will start him on prednisone for 5 days. Patient instructed to use his Rita every 4 hours on a p.r.n. basis specially during this acute illness. [id number] JACE KEENE PA-C [facility] [address] [place] [address] 08/21/2023 11:11:37 08/21/2023 11:49:07 Lumbar spondylosis 671388390 M47.896 Low back pain 230462158 M54.50 Degenerati on of lumbar intervertebral disc 99278487 M51.36 Arthritis of facet joint of lumbar spine 7264841847 1479643 M46.96 Spinal ent hesopathy of lumbosacral region 0521499311 00532 M46.07 [id number] Raven Wu MD [facility] [address] [facility] [address] [place] [address] 07/02/2023 11:09:30 07/02/2023 12:08:37 Prediabetes 138586187 R73.03 Chronic low back pain 27 1557871 M54.50 Chronic ob structive pulmonary disease 94084962 J44.9 Migraine 74837557 G43.90 9 We will try samples of Ubrelvy. Nocturia 995401959 R35.1 [id number] JACE KEENE PA-C [facility] [address] [place] [address] 10/20/2023 13:00:21 10/20/2023 15:04:30 Lumbar spondylosis 622458307 M47.896 Low back pain 288517433 M54.50 Degenerati on of lumbar intervertebral disc 25255709 M51.36 Arthritis of facet joint of lumbar spine 2963915829 8348241 M46.96 Spinal ent hesopathy of lumbosacral region 5387459126 98357 M46.07 Pain in le ft sacroiliac joint 6866195825 1113593 M53.3 [id number] Dane Cao MD [facility] [address] [place] [address] 11/03/2023 14:32:11 11/03/2023 15:01:57 Lumbar spondylosis 090081100 M47.896 Low back pain 953633110 M54.50 Degenerati on of lumbar intervertebral disc 26104919 M51.36 Arthritis of facet joint of lumbar spine 7332145217 0433825 M46.96 Spinal ent hesopathy of lumbosacral region 2413571276 65429 M46.07 Pain in le ft sacroiliac joint 7091043301 4731001 M53.3 [id number] JACE KEENE PA-C [facility] [address] [facility] [address] [place] [address] 12/02/2023 13:03:37 12/02/2023 14:01:30 Pain in left sacroiliac joint 6600115871 2288773 M53.3 Lumbar spondylosis 01746 0009 M47.896 Low back pain 643222243 M54.50 Degenerati on of lumbar intervertebral disc 22434360 M51.36 Arthritis of facet joint of lumbar spine 2546972780 7065895 M46.96 Spinal ent hesopathy of lumbosacral region 3533251700 16942 M46.07 Muscle pain 22094160 M79 .18 [id number] Raven Wu MD [facility] - [place] [address] [facility] [address] [place] [address] 12/23/2023 10:11:57 12/23/2023 10:41:56 Benign prostatic hyperplasia 763027644 N40.0 Keep follow-up next week with Urology. Chronic ob structive pulmonary disease 19234876 J44.9 Continue current regimen. Depressive disorder 6078 5116 F32.A [id number] Dane Cao MD [facility] [address] [facility] [address] [place] [address] 12/23/2023 09:42:20 12/23/2023 10:11:51 Myofascial pain 516982247 M79.18 [id number] Daylin Garcia NP, S [facility] Urology [facility] [place] [address] 12/28/2023 10:52:25 12/28/2023 11:48:33 Nocturia 677229352 R35.1 pt voided prior to appointmen t @ 9:30 am Slowing of urinary stream 19217282 R39.12 Pt voided prior to apptPVR 36ccContin ue Tamsulosin 0.4mg dailyRTC in 6 weeks for f/u Urge incon tinence of urine 75531181 N39.41 [id number] Daylin Garcia, SECURITY SERVICES MANAGER, S [facility] Urology-[address] [place] [address] 02/11/2024 10:35:32 02/11/2024 11:01:15 Increased frequency of urination 220606467 R35.0 Nocturia 065939592 R35.1 Slowing of urinary stream 80467244 R39.12 Pt voided prior to apptContin ue Tamsulosin 0.4mg daily, RFs providedRT C in Jun for f/u with Screening PSA [id number] Raven Wu MD [facility] - [place] [address] [place] [address] 04/25/2024 10:55:43 04/25/2024 11:44:44 Hypogonadism 76407749 E29.1 Depressive disorder 3548 9007 F32.A Increase his duloxetine 60 mg daily. Chronic ob structive pulmonary disease 51858970 J44.9 Continue current regimen. Administra tion of influenza vaccine 24985244 Z23 Multi-infa rct dementia 81039080 I63.9 Hyperlipidemia 59179477 E78.5 [id number] Theron Youssef M.D [facility] Pulmonary Medicine W - [address] [place] [address] [address] [facility] [place] [address] 05/24/2024 13:53:01 05/24/2024 15:08:32 [place] workers' pneumoconiosis 12851392 J60 Chronic ob structive pulmonary disease 89293476 J44.9 Obstructiv e sleep apnea syndrome 53549576 G47.33 Chronic hy poxemic respiratory failure 832569211 J96.11 [id number] Justice Jauregui MD [facility] [address] [place] [address] 06/01/2024 16:36:11 06/01/2024 17:22:47 Cough 50979392 R05.9 Community acquired pneumonia 148880429 J18.9 Based on my viewing of the CXR, it appears to show bilateral infiltrate s. Will treat as pneumonia and await official xray report. If fails to improve, have repeat evaluation , or immediatel y if worsens. [id number] JACE KEENE PA-C [facility] [address] [place] [address] 06/03/2024 09:10:39 06/03/2024 09:51:23 Pain in left sacroiliac joint 4015444116 6563623 M53.3 - The patient is 7 months S/P therapeuti c left SI joint injection, which was successful in addressing left sacroiliit is. Lumbar spondylosis 34842 0009 M47.896 - The patient is 9 months S/P bilateral lumbar RFA at L4-S1, which was successful in decreasing axial, non-radicu lar low back pain by greater than 50%. Low back pain 087892992 M54.50 Degenerati on of lumbar intervertebral disc 70521767 M51.362 Arthritis of facet joint of lumbar spine 0659940606 7724738 M46.96 Muscle pain 15182561 M79 .18 - The patient is 6 months S/P TPI of the left lumbosacra l region, which was successful in decreasing left-sided low back pain by nearly 100%. It seems that much of the pain was myofascial in nature.- The patient notes that pain isn't bothersome at this time.- The patient is currently participat ing in PT.- I will follow up in 2-3 months to reassess pain. [id number] Daylin Garcia NP, S [facility] Urology-[address] [place] [address] 07/21/2024 10:46:04 07/21/2024 11:48:46 Nocturia 080816721 R35.1 Increased frequency of urination 623521168 R35.0 Screening for malignant neoplasm of prostate 277964747 Z12.5 Slowing of urinary stream 09743051 R39.12 Continue Tamsulosin 0.4mg daily, RFs providedSc reening PSA order provided to pt to have performedI f PSA stable RTC in 1 year for f/u [id number] Raven Wu MD [facility] [address] [facility] [place] [address] 07/28/2024 14:07:56 07/28/2024 14:39:14 Herpes zoster 8000986 B02.9 [id number] Theron Youssef M.D [facility] Pulmonary Medicine - [address] [place] [address] [address] [place] [address] 09/08/2024 13:51:23 09/08/2024 15:10:01 [place] workers' pneumoconiosis 14193886 J60 Chronic ob structive pulmonary disease 98740905 J44.9 Obstructiv e sleep apnea syndrome 23867066 G47.33 Chronic hy poxemic respiratory failure 748028089 J96.11 Dyspnea 713912886 R06.02 53391 Dyspnea on exertion 6084 5006 R06.02 [id number] Raven Wu MD [facility] [address] [place] [address] 10/07/2024 13:23:08 10/07/2024 13:47:18 Chronic obstructive pulmonary disease 93228089 J44.9 Continue current regimen. Mixed hyperlipidemia 267 972301 E78.2 29536 Male hypogonadism 682728 06 E29.1 64432834 Long-term current use of drug therapy 178174905 Z79.634 4479761 [id number] Raven Wu MD [facility] [address] [facility] [place] [address] 01/23/2025 14:27:57 01/23/2025 15:04:17 Impaired cognition 811237195 G31.84 993495 Chronic ob structive pulmonary disease 22773962 J44.9 Continue current regimen. [id number] Berrydixie Sheets MD [facility] Pulmonolo gy [address] [place] [address] 01/26/2025 10:34:05 01/26/2025 13:03:24 [place] workers' pneumoconiosis 13850975 J60 patient is advised breztri 2 puffs twice dailyAlbut rafael inhalerHom e oxygen 2 liters/min uteAlbuter ol nebs every 6 hoursWill refer for pulmonary rehab Massive fi brosis of lung 91605240 J84.10 continue home oxygenCT scan reviewed no significan t change noted bilateral progressiv e massive fibrosis Obstructiv e sleep apnea syndrome 30422807 G47.33 CPAPRegula r exercise [id number] Berry Sheets MD [facility] gy [address] [facility] [address] [place] [address] 02/23/2025 12:49:56 02/23/2025 13:13:48 Acute exacerbation of chronic obstructive pulmonary disease 815113104 J44.1 patient is advised to continue home oxygen and neb treatments Collin history 2 puffs twice dailyAdvis ed to rinse mouth after useWe will start him on Amoxil and prednisone for 1 week [place] worke rs' pneumoconiosis 88486700 J60 [id number] Kinza Oliver, [facility] [address] [place] [address] 03/11/2025 14:02:01 03/11/2025 15:11:48 Pain of hip region 45476685 M25.570 [id number] follow up with PCP if not better in 3-4 daysaltern ate ice and heatgo to ER with any worsening of symptoms [id number] Berry Sheets MD [facility] [address] [facility] [address] [place] [address] 03/28/2025 12:54:55 03/28/2025 13:39:26 Acute exacerbation of chronic obstructive pulmonary disease 710062312 J44.1 506532 patient is advised to continue home oxygen and neb treatments Breztri 2 puffs twice dailyAdvis ed to rinse mouth after usewe will start him on Zithromax along with prednisone for 1 week Confluent fibrosis of lung 99843025 J84.10 3182 [id number] Berry Sheets MD [facility] Pulmonolo gy [address] [place] [address] 04/25/2025 12:44:27 04/25/2025 13:10:54 Chronic obstructive pulmonary disease 13147147 J44.9 advised breztri twice dailyDuoNe bs every 6 hoursWe will start on Daliresp once daily [place] worke rs' pneumoconiosis 00616850 J60 continue BiPAP along with home oxygen Health Concerns Section Related Observation LastModified by Organization Detai ls LastModified Time None Recorded Concern Status LastModified by Organization Details LastModified Time None Recorded Advance Directives Directive Y: Payers Insurance Date Sequence Insurance Name Policy Number Policy Villasenor Covered Member ID Villasenor Member ID Guarantor Name 02/23/2025 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 [facility] LUNG PROGRAM [id number] Florentino Pickard [id number] Florentino Pickard 02/23/2025 3 [place] Florentino Pickard [id number] Florentino Pickard 02/23/2025 3 [facility] (MEDICAID REPLACEMENT - HMO) Florentino Pickard [id number] Florentino Pickard 02/23/2025 3 [place] Florentino Pickard [id number] Florentino Pickard 02/23/2025 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 [facility] LUNG PROGRAM Florentino Pickard [id number] Florentino Pickard 02/23/2025 1 [employer] (PPO) Florentino Pickard [id number] Florentino Pickard 02/23/2025 [employer] (MEDICARE REPLACEMENT/ADV ANTAGE - PPO) Florentino Pickard [id number] Florentino Pickard 02/23/2025 [employer] (MEDICARE REPLACEMENT/ADV ANTAGE - PPO) Florentino Pickard [id number] Florentino Pickard 02/23/2025 1 [employer] (MEDICARE REPLACEMENT/ADV ANTAGE - PPO) Florentino Pickard [id number] Florentino Pickard 04/22/2025 1 [facility] (MEDICARE REPLACEMENT/ADV ANTAGE - HMO) [id number] Florentino Pickard [id number] Florentino Pickard 02/23/2025 2 DEPARTMENT [employer] LABOR - [employer]UNG BENEFITS (OCCUPATIONAL HEALTH) [id number] Florentino Paredes Neerajtherese Paredes Neeraj 02/23/2025 [employer] (MEDICARE REPLACEMENT/ADV ANTAGE - PPO) Florentino Paredes Neeraj [id number] Florentino Paredes Neeraj 02/23/2025 2 [facility] ([place]PL[place] - [place]) [id number] Florentino Paredes Neeraj [id number] Florentino Pickard Notes Date Note Type Note Provider Name and Address Organization Details Recorded Time 01/26/2025 text/html ROS as noted in the HPI 69 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 progressive massive 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 presents for evaluation and to establish care patient complains of poor energy with effort intolerance cough wheeze and brownish mucopurulent expectoration off and on mainly in the morningsPatient takes nebulizer treatmentsPatient is on home oxygen at 2 liters/minutePatient takes breast tree 2 puffs twice daily along with albuterol inhaler as neededPatient has a history of obstructive sleep apnea and is using CPAP Berry Sheets MD [address], [place], [address], [facility] & [place] 01/26/2025 11:13:01 02/23/2025 text/html ROS as noted in the HPI temporary 69 years old white male with history of black lung presents with severe breathlessness and wheeze congestion clears with cough with chest congestionPatient uses home oxygen and is on nebulizer treatmentsPatient is also on respiratory twice dailyPatient denies any chest pain fever or hemoptysis Berry Sheets MD [address], [place], [address], [facility] & [place] 02/23/2025 13:10:20 03/11/2025 text/html Pt is here today with [...] and genital area Kinza Oliver NP [address], [place], [address], [facility] & [place] 03/22/2025 22:28:06 03/28/2025 text/html ROS as noted in the HPI 69 years old white male with history of COPD presents for evaluation patient has been having worsening breathlessness along with cough wheeze and mucoid expectoration complains of smothering spells along with impaired effort tolerance tiredness and fatiguePatient denies any fever hemoptysis or weight loss Berry Sheets MD [address], [place], [address], [facility] & [place] 03/28/2025 13:25:29 04/25/2025 text/html ROS as noted in the HPI 69 years old white male with history of pneumoconiosis with COPD presents for follow-up patient complains of worsening breathlessness along with wheeze and cough with thick mucoid expectoration patient denies any chest pain fever or hemoptysis Berry Sheets MD [address], [place], [address], [facility] & [place] 04/25/2025 13:06:17
--- OUTSIDE RECORDS SUMMARY | 2025-04-28 18:56 | XMS_ITS | Clinical Summary ---
Author Organization [facility] Address [address] [place] [address] Care Team Providers Care Filter Washer Name Role Phone Tyshawn Wu MD Primary Care Provider [phone] Allergies Active Allergy Reactions Criticality Noted Date [...] C SCREENING 11/04/2016 AAA SCREEN ONCE 2022 INFLUENZA VACCINE 01/27/2025 COVID-19 Vaccine ( season) 2025 Insurance [employer] MEDICARE ADVANTAGE COMMUNITY HMO - NON PAR on file Care Teams Filter Washer Relationship Specialty Start Date End Date Tyshawn Wu MD [address] [facility] [address] [place] [address] PCP - General Family Medicine 11/04/16
--- OUTSIDE RECORDS SUMMARY | 2025-04-28 18:56 | XMS_ITS | Continuity of Care Document ---
Author Organization [facility] [address] Address [address] [place] [address] Care Team Providers Care Inspector Tubes Name Role Phone RAVEN WU Primary Care [...] None recorded. Imaging None recorded. Medication Orders Daliresp 250 mcg tablet 2024 025 [facility], [address] [place] [address], [id number], 04/25/2025 13:55:40 Mucinex 600 mg tablet, extended release 2024 025 [facility], [address] [place] [address], [id number], 04/26/2025 12:26:42 Patient TargetsNo targets recorded. Patient InstructionsNo instructions recorded. Reason for Referral None Reported. Problems Name Problem SNOMED Code Status Onset Date Resolution Date Notes Provider Name and Address Organization Details Recorded Time Restless legs syndrome 41468068 Active Zita Couch null, [facility] & [place] 2 09:59:27 Upper respiratory infection 07025062 Active Zita Couch null, [facility] & [place] 2 09:59:27 Dyspnea 161335181 Active [place] [facility] [place] & [place] 2 09:59:27 Left lower zone pneumonia 279654949 Active [place] 2 09:59:27 Massive fibrosis of lung 11305234 Active Z[place] & [place] 2 09:59:27 Erectile dysfunction 685915143 Active [place] 2 09:59:27 Patient encounter status 663003791 Active [place] 2 09:59:27 Nocturia 519706940 Active [place] 2 09:59:27 Viet hematuria 329995065 Active Z[place] 2 09:59:27 Kidney stone 43361325 Active [place] 2 09:59:27 Screening status 608602110 Active [place] 2 09:59:27 Cramp in lower limb 889621878 Active [place] 2 09:59:27 Nicotine dependence 49954349 Active Z[place] 2 09:59:27 Esophageal varices without bleeding 91186061 Active [place] 2 09:59:28 Undifferent iated inflammator y polyarthrit is 562863187 Active [place] 2 09:59:28 Hypertensiv e disorder 04249070 Active [place] 2 09:59:28 Essential hypertensio n 72361202 Active [place] 2 09:59:28 Male hypogonadis m 72805473 Active Z[place] 2 09:59:28 Lung mass 306833677 Active [place] 2 09:59:28 History of polyp of colon 972617999 Active [place] 2 09:59:28 Gout 29213415 Active Z[place] 2 09:59:28 Abnormality of hepatic vein 231633845 Active [place] 2 09:59:28 Chronic obstructive pulmonary disease 81985656 Active [place] 2 09:59:28 Memory impairment 695180154 Active [place] 2 09:59:28 Arthritis of knee 261279631 Active [place] 2 09:59:28 Sinusitis 67176351 Active [place] 2 09:59:28 [place] workers' pneumoconio sis 84164116 Active Zita [place] & [place] 2 09:59:28 Candidiasis of mouth 52613505 Active Z[place] 2 09:59:28 Gastroesoph ageal reflux disease 963114844 Active [place] 2 09:59:28 Fatigue 96128670 Active [place] 2 09:59:28 Daytime somnolence 558160272006 Active [place] 2 09:59:28 Dyspnea on exertion 86236053 Active [place] & [place] 2 09:59:28 Hyperlipide tierra 12588058 Active [place] 2 09:59:28 Acute exacerbatio n of chronic obstructive pulmonary disease 010243296 Active [place] 2 09:59:28 Large prostate 266168433 Active [place] 2 09:59:28 Obstructive sleep apnea syndrome 15376019 Active [place] 2 09:59:28 Computed tomography result abnormal 729761530 Active [place] 2 09:59:28 Disease of liver 215239122 Active [place] 2 09:59:28 Hypersomnia 92661292 Active Z[place] 2 09:59:28 Measurement finding 980390681 Active [place] 2 09:59:28 Depression - motion Active [place] & [place] 2 09:59:28 Constipatio n 66193340 Active [place] 2 09:59:28 Counseling Active [place] 2 09:59:28 Needs influenza immunizatio n 357975687 Active 2009 Zita [place] 2 09:59:27 Low back pain 950212981 Active 2009 Z[place] 2 09:59:27 Dysuria 92977206 Active 2009 Z[place] 2 09:59:27 Allergic rhinitis 54184929 Active 2010 Z[place] 2 09:59:28 Fever 931434428 Active 2010 Zita Juan Ach [place] 2 09:59:28 Cough 17314126 Active 2010 Zita Velazcoch null[place] 2 09:59:28 Precordial pain 67506113 Active 2010 Zita [place]azco[place] 2 09:59:27 Transient insomnia 847326203 Active 2010 Zita Juan Ach [place] 2 09:59:27 Pleurisy without effusion or active tuberculosi s 753063852 Active 2010 Z[place] 2 09:59:27 Anemia due to chronic blood loss 469031434 Active 2010 Zita Juan Ach [place] 2 09:59:28 Lumbar spondylosis 804259272 Active 2022 Danyelle Jensen [place] 3 15:49:53 Degeneratio n of lumbar interverteb ral disc 73211714 Active 2022 Danyelle [place] 3 15:49:57 Arthritis of facet joint of lumbar spine 7519656677755 9101 Active 2022 Danyelle teresa[place] 3 15:49:58 Pain in left sacroiliac joint 8968376556518 9102 Active 2023 Danyelle [place] & [place] 4 11:43:59 Myofascial pain 224339857 Active 2023 Danyelle [place] 4 07:00:26 Notes:Some problems listed i n Documents: #[id number], #[id number] could not be added to this patient's chart. Please review these documents and add these problems to the patient's chart manually as needed. Problem Notes None recorded. Procedures Surgical History Date Name Laterality Status Provider Name and Address Organization Details Recorded Time 09/08 6 Minute Walk Test completed Annel Wood[place] & [place] 5 15:15:28 05/24 6 Minute Walk Test [place] Annel [place] 4 14:59:54 12/22 Injection Only completed D[place]elle [place] & [place] 4 07:02:09 05/28 Injection Only completed Susy [place] & [place] 3 10:23:09 05/05 Injection Only completed CASEY NASCIMENTO [address], [place], [address] , [place] & [place] 3 08:48:41 10/29 Colonoscopy completed Emma [place]a [place] 5 11:19:29 02/21 esophagogastroduodenoscopy completed Maria Del Carmen Lewis [place] 5 11:24:27 03/26 Colonoscopy completed Emma [place]a [place] & [place] 5 11:21:39 10/27 revision of total hip replacement completed Emma OSPINA [facility] & [place] 5 11:28:22 06/29 Hip Surgery completed Meaghan SOPINA [facility] & [place] 2 13:18:35 06/29 excision of mediastinal lymph nodes group completed Emma OSPINA [facility] & [place] 5 11:28:58 06/29 Other completed Meaghan OSPINA [facility] & [place] 2 13:18:35 opening of chest completed Emma OSPINA [facility] & [place] 5 11:27:45 operation on lung completed Rachel OSPINA [facility] & [place] 2 08:23:40 prosthetic arthropla sty of hip completed Rachel OSPINA [facility] & [place] 2 08:24:00 repair of musculoten dinous cuff of shoulder completed Rachel OSPINA [facility] & [place] 2 08:24:14 Imaging Results None recorded. Procedure [...] Available Vitals Date Recorded Body height Body temperature Oxygen saturation Oxygen saturation in Arterial blood by Pulse oximetry Heart rate Body mass index (BMI) Body weight Systolic And Diastolic Provider Name and Address Organization Details Last Updated DateTime 170.18 cm 98.2 [degF] 98.2 % 98.2 % 87 /min 25.3 kg/m2 44029.2 5 g 134/67 mm[Hg] Coleen Breen [facility] & [place] 12:55:12 Social History Question Answer Notes LastModified by Organizat ion Details LastModified Time Tobacco Smoking Status Never Smoker Zita teresa, [facility] & [place] 04/15/2022 10:04:04 Do You Have An Advance Directive? Yes Information not available 04/15/2022 Are You Blind Or Do You Have Difficulty Seeing? No Information not available 04/15/2022 Is Blood Transfusion Acceptable In An Emergency? Yes Information not available 05/19/2022 What Is Your Level Of Caffeine Consumption? Moderate [email or web address] Information not available 10/09/2022 Are You Deaf Or Do You Have Serious Difficulty Hearing? Yes Information not available 05/19/2022 What Type Of Diet Are You Following? REGULAR Information not available 05/19/2022 Have There Been Any Changes To Your Family Or Social Situation? No Information not available 05/19/2022 In General, Would You Say Your Health Is Good [email or web address] Information not available 04/15/2022 How Would You Describe The Condition Of Your Mouth And Teeth i ncluding False Teeth Or Dentures? Good [email or web address] Information not available 04/15/2022 Do You Have Chronic Pain? Yes [email or web address] Information not available 04/15/2022 Are You In A Pain Management Program? Yes Information not available 04/15/2022 Do You Take Opioids For Your Pain? Yes [email or web address] Information not available 04/15/2022 In The Past 7 Days, Did You Need Help From Others To Take Care Of Things Such As Laundry And Housekeep- Ing, Banking, Shopping, Using The Telephone, Food Preparation, Transportation, Or Taking Your Own Medications? No [email or web address] Information not available 04/15/2022 Do You Live Alone? No [email or web address] Information not available 04/15/2022 Does Your Home Have Any Fall Risks (un-level Floors, Unfastened Rugs, Poor Lighting, Etc)? No [email or web address] Information not available 04/15/2022 What Was The [...] is your level of alcohol consumption? None [email or web address] Information not available 04/15/2022 Do you have [...] anxious, or unable to sleep at night)? [id number] Information not available 05/19/2022 Do you have difficulty concentrating, remembering or making decisions? Yes Information n ot available 05/19/2022 Family History Relationship Description Onset Age of this Age Resolved Age Notes LastModified by Organization Details LastModified Time Mother Malignant neoplastic disease 83 [email or web address] Not available 03/28 12:56:41 Mother Essential hypertension [email or web address] Not available 12:56:41 Mother Osteoarthrit is [email or web address] Not available 03/28 12:56:41 Father Heart failure 45 [email or web address] Not available 03/28 12:56:41 Father Coronary arterioscler osis [email or web address] Not available 03/28 12:56:41 Father Heart disease [email or web address] Not available 2023 16:23:59 Father Myocardial infarction [email or web address] Not available 01/17 11:29:50 Brother Diabetes mellitus [email or web address] Not available 03/28 12:56:41 Brother Heart disease [email or web address] Not available 2024 11:29:33 Medical History Condition Response Allergies/Hayfever Y Other Y Gout Y Arthritis Y Kidney Stones Y Polyps Y Ear or Hearing Problems Y Back Problems Y Stroke Y Depression Y Lung Disease Y COPD Y Anemia Y Reflux/GERD Y Sleep Apnea Y High Cholesterol Y Hypertension Y Immunizations Vaccine Type Date Status Note Provider Nam e and Address Organization Details Recorded Time Influenza, split virus, trivalent, preservative 0 completed Jodie Leann null, [place] [facility] [place] & [place] 03/18/2024 16:22:55 pneumococcal polysaccharide PPV23 1 completed Jodie Leann [place] & [place] 03/18/2024 16:22:55 Influenza, split virus, quadrivalent, preservative 7 completed Jodie Le[place] & [place] 03/18/2024 16:22:55 Influenza, split virus, quadrivalent, preservative 8 completed Jodie [place] 03/18/2024 16:22:55 Influenza, split virus, quadrivalent, PF 0 completed Jodie [place] 03/18/2024 16:22:55 Pneumococcal conjugate PCV 13 4 completed Jodie Noriega [place] 03/18/2024 16:22:55 COVID-19 vaccine, vector-nr, rS-Ad26, PF, 0.5 mL 1 completed Jodie Perezon [place] 03/18/2024 16:22:55 Influenza, split virus, quadrivalent, PF 6 completed Jod[place] 03/18/2024 16:22:55 Influenza, split virus, quadrivalent, PF 1 completed Jodie Perezon [place] 03/18/2024 16:22:55 Influenza, adjuvanted, quadrivalent, PF 2 completed Jodie [place] 03/18/2024 16:22:55 Influenza, adjuvanted, trivalent, PF 4 completed Raven Wu MD [address] [place], [address], [place] 04/25/2024 12:22:25 Td (adult) 3 completed Zita Villagomez [place] 07/28/2024 14:24:29 Past Encounters Encounter ID Performer Location Encounter Start Date Encounter Closed Date Diagnosis/Indication Diagnosis SNOMED-CT Code Diagnosis ICD10 Code Diagnosis IMO Codes Diagnosis Note [id number] Berry MD Sudeep [facility] [address] [place] [address] 03/28/2025 12:54:55 03/28/2025 13:39:26 Acute exacerbation of chronic obstructive pulmonary disease 666901785 J44.1 875813 patient is advised to continue home oxygen and neb treatments Breztri 2 puffs twice dailyAdvis ed to rinse mouth after usewe will start him on Zithromax along with prednisone for 1 week Confluent fibrosis of lung 27092823 J84.10 3182 [id number] Berry Sheets MD [facility] [address] [place] [address] 04/25/2025 12:44:27 04/25/2025 13:10:54 Chronic obstructive pulmonary disease 54707425 J44.9 advised breztri twice dailyDuoNe bs every 6 hoursWe will start on Daliresp once daily [place] worke rs' pneumoconiosis 17563669 J60 continue BiPAP along with home oxygen Health Concerns Section Related Observation LastModified by Organization Detai ls LastModified Time None Recorded Concern Status LastModified by Organization Details LastModified Time None Recorded Payers Encounter Date Sequence Insurance Name Policy Number Policy Villasenor Covered Member ID Villasenor Member ID Guarantor Name 04/25/2025 1 [facility] (MEDICARE REPLACEMENT/A DVANTAGE - HMO) [id number] Florentino Pickard [id number] Florentino Pickard Notes Date Note Type Note Provider Name and Address Organization Details Recorded Time 04/25/2025 text/html ROS as noted in the HPI 69 years old white male with history of pneumoconiosis with COPD presents for follow-up patient complains of worsening breathlessness along with wheeze and cough with thick mucoid expectoration patient denies any chest pain fever or hemoptysis Berry Sheets MD [address], [place], [address], [facility] & [place] 04/25/2025 13:06:17
--- OUTSIDE RECORDS SUMMARY | 2025-04-28 18:56 | XMS_ITS | Clinical Summary ---
Author Organization [employer] ([place], [place], [place], [place], [place]) Address [address] [place] [address] Care Team Providers Care Clothes Model Name Role Phone Unavailable Primary Care Provider [...] Date Wellington rded Speak language other than Frisian at home Not on file 07/10/2023 Want [...] 2) 09/06/2007 Medicare Initial AWV [id number] 06/30/2023 Falls Risk Screening 06/29/2024 COVID-19 VACCINE (2 - season) 02/27/202503/2021 Influenza Vaccine (#1) 2025 04/15/2022 Respiratory Syncytial Virus (RSV) Adult or (1 - 1-dose 75+ series) 2032 DTAP/TDAP/TD VACCINES (2 - Td or Tdap) 12/02/2032 Insurance [facility] MEDICARE PPO MEDICARE PART A B
--- OUTSIDE RECORDS SUMMARY | 2025-04-28 18:56 | XMS_ITS | Referral Summary ---
Author Organization [employer] ([place], [place], [place], [place], [place]) Address [address] [place] [address] Care Team Providers Care Vendor Management Specialist Name Role Phone Unavailable Primary Care Provider [...] Date [place] rded Speak language other than Slovak at home Not on file 07/10/2023 Want [...] Treatment Not on file Insurance ENRIQUE Millan [id number] [facility] MEDICARE PPO MEDICARE PART A B
[2025-04-28] MEDS: MORPHINE 4MG/ML SYRINGE 4 MG IV (18:58)
[2025-04-28] MEDS: ORPHENADRINE CITRATE 60MG/2ML VIAL 30 MG IV (18:58)
[2025-04-28] MEDS: ONDANSETRON 4MG/2ML VIAL 4 MG IV (18:58)
[2025-04-28 19:04] LABS: Hematocrit 43.3 % (42.0-52.0); Hemoglobin 14.3 g/dL (14.1-18.0); Immature Granulocytes % 0.8 %; Mean Corpuscular HGB Conc 33.0 g/dL (31.8-35.4); Mean Corpuscular Hemoglobin 30.0 pg (27.0-31.2); Mean Corpuscular Volume 90.8 fl (80-94); Nucleated Red Blood Cells % 0 %; Platelet Count 170 K/mm3 (142-424); Red Blood Count 4.77 M/mm3 (4.60-6.20); Red Cell Distribution Width-SD 54.1 fL; White Blood Count 7.3 K/mm3 (4.8-10.8)
[2025-04-28 19:09] VITALS: BP 119/66; PULSE 71; RESP 16; TEMP 36.8; O2SAT 94
[2025-04-28 19:39] LABS: Blood Urea Nitrogen 25 mg/dl (9-20); Creatinine Clearance Estimated 55 mL/min (50-200); Creatinine,Serum 1.30 mg/dl (0.66-1.25); Estimated Glomerular Filt Rate 55 ml/min (>60); GFR (African American) 67 ML/MIN (>60)
[2025-04-28 19:41] LABS: Alanine Aminotransferase 19 U/L (12-78); Albumin Level 4.8 g/dl (3.5-5.0); Albumin/Globulin Ratio 2.4 (1.1-1.8); Alkaline Phosphatase 61 U/L (38-126); Anion Gap 9.2 mEq/L (5-15); Aspartate Amino Transferase 30 U/L (17-59); Bilirubin,Total 0.9 mg/dl (0.2-1.3); Calcium 8.7 mg/dl (8.4-10.2); Carbon Dioxide 28 mmol/L (22.0-30.0); Chloride 100 mmol/L (98-107); Globulin 2.0 g/dL (1.3-3.2); Glucose 102 mg/dl (74-100); Lipase 284 U/L (23-300); Magnesium 2.2 mg/dl (1.6-2.3); Potassium 4.2 mmoL/L (3.5-5.1); Sodium 133 mmol/L (136-145); Total Protein,Serum 6.8 g/dl (6.3-8.2)
--- NOTE | 2025-04-28 19:59 | CT_ITS ---
PROCEDURE INFORMATION: Exam: CT Pelvis Without Contrast, Skeleton Exam date and time: 04/28/2025 8:25 PM Age: 69 years old Clinical indication: Pain and abnormal findings; Abnormal imaging test; Hip pain; Right hip; Prior surgery; Surgery date: 6+ months; Surgery type: Hip replacement TECHNIQUE: Imaging protocol: Computed tomography of the pelvis without contrast. Exam focused on the skeleton. Radiation optimization: All CT scans at this facility use at least one of these dose optimization techniques: automated exposure control; mA and/or kV adjustment per patient size (includes targeted exams where dose is matched to clinical indication); or iterative reconstruction. COMPARISON: CR XR HIP RT 2-3V W/PELVIS 04/28/2025 7:14 PM FINDINGS: Reproductive: Mildly enlarged prostate. Bones/joints: Prior bipolar right hip arthroplasty with no evidence of hardware breakage or displacement. Acute oblique intertrochanteric fracture of the right proximal femur best characterized on the sagittal reconstructions, with up to 7 mm displacement anteriorly and mild comminution posterolaterally. There is nondisplaced fracture extension in the posterior aspect of the greater trochanter. The distal prosthetic femoral stem shows no evidence of loosening or stress riser. Nutrient foramen incidentally noted in the posterior femoral diaphysis near the tip of the femoral stem, with no acute fracture in this region. 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 Soft tissues: Unremarkable. IMPRESSION: 1. Acute appearing mildly displaced intertrochanteric fracture of the right proximal femur. 2. Bipolar right hip arthroplasty without hardware breakage or displacement. 3. 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
[2025-04-28 20:00] VITALS: BP 120/72; PULSE 69; O2SAT 100
--- NOTE | 2025-04-28 21:02 | PC.NURSE ---
Called [facility] for possible pt xfer
--- NOTE | 2025-04-28 21:26 | PC.NURSE ---
Report called to [facility] ED. Given to SERVANDO Collier
[2025-04-28 21:32] VITALS: BP 120/72; PULSE 69; RESP 20; TEMP 36.8; O2SAT 100
[2025-04-28 21:49] VITALS: O2SAT 98
== END 2025-04-28 21:50 | disposition short-term general hospital (02) ==
PROVIDERS: Nurse Practitioner; Emergency Provider Student in an Organized Health Care Education/Training Program; PCP Family Medicine
DX: S72.141A Displaced intertrochanteric fracture of right femur, initial encounter for closed fracture (principal); W19.XXXA Unspecified fall, initial encounter
CPT/HCPCS: 72192; 73502; 80053; 83690; 83735; 85025; 96374; 96375; 99284; 99285; J2270; J2360; J2405